=== PATIENT | male | born 1955 | race American Indian/Alaskan Native ===

== ENCOUNTER 2022-03-09 00:52 | Inpatient (IN) ==
[2022-03-09] MEDS ORDERED: IOPAMIDOL 100 ML BOTTLE IV ONE (00:53)
[2022-03-09] MEDS ORDERED: ONDANSETRON 4 MG/2 ML VIAL IV ONE (00:56)
[2022-03-09] MEDS ORDERED: morphine 4 MG/ML VIAL IV ONE ×2 (01:04→02:13)
[2022-03-09] MEDS ORDERED: FAMOTIDINE/PF 20 MG/2 ML VIAL IV ONE (01:04)
[2022-03-09] MEDS ORDERED: ACETAMINOPHEN 1,000 MG/100 ML BAG IV ONE (01:09)
--- NOTE | 2022-03-09 01:14 | Emergency Department Note ---
HPI General Chief complaint: Nausea/Vomiting/Diarrhea Stated complaint: n/v abd pain Time Seen by Provider: 03/09/22 00:55 Source: patient Mode of arrival: ambulatory Limitations: no limitations History of Present Illness HPI Narrative: Narrative: 66-year-old male with a history of BPH/prostate mass presented to the ED with acute mid abdominal pain bloating and nonbloody nonbilious nausea vomiting this evening. Says it started after "I ate a bad sandwich" thinks he may have food poisoning. No diarrhea. No fever no chills. No chest pain or shortness of breath. No symptoms. No history of hepatobiliary pancreatic disease. No other complaints. Related Data Home Medications Medication Instructions Recorded Confirmed ibuprofen 03/09/22 Previous Rx's Medication Instructions Recorded finasteride 5 mg tablet (Proscar) 5 mg PO QDAY #60 tab 09/28/16 tamsulosin 0.4 mg capsule 0.4 mg PO .Twice a day #120 cap 09/28/16 Allergies Allergy/AdvReac Type Severity Reaction Status Date / Time No Known Drug Allergies Allergy Verified 03/09/22 00:56 Review of Systems ROS ROS Narrative: Narrative: All systems ED: reviewed and negative except as stated. PFSH Narrative Patient History Narrative: Narrative: Medical/Surgical/Family History All Active Problems (Updated 03/09/22 @ 05:21 by Chris Ponce DO) Acute pancreatitis (Acute) Acute urinary retention (Acute) History of BPH (Acute) Acute duodenitis (Acute) Change in bowel movement (Acute) Prostate mass (Chronic) Left lower quadrant pain (Chronic) Medical History Left lower quadrant pain Prostate mass Surgical History History of elbow surgery 1988 No pertinent past surgical history Status post wrist surgery Bilateral Family History Sister Diabetes Daughter Diabetes Brother Hypertension Social History Smoking Status: Current some day smoker Alcohol Intake Frequency: a few times a month Exam Narrative Narrative: Narrative: Constitutional: normally developed, appears a bit uncomfortable heaving. Head: Normocephalic, atraumatic, Eyes: No Icterus, ENT: Moist mucus membranes, Neck: Supple, Cardiac: Normal heart sounds, palpable radial pulses, no peripheral edema Pulmonary: Normal respiratory effort. Breath sounds clear, no wheeze, rhonchi, rales, Gastrointestinal: Abdomen appears a bit distended but soft, has generalized tenderness throughout his upper abdomen with some voluntary guarding. Pain appears most focal in the epigastrium and less so in the right upper quadrant Musculoskeletal: No gross deformities, well perfused Skin: warm, dry Neuro: Alert and oriented. General Limitations: no limitations Course Vital Signs Vital signs: Vital Signs Temperature 36.6 C 03/09/22 00:53 Pulse Rate 81 03/09/22 00:53 Respiratory Rate 16 03/09/22 00:53 Blood Pressure 149/90 03/09/22 00:53 Pulse Oximetry (%) 95 03/09/22 00:53 Temperature 36.6 C 03/09/22 00:53 Pulse Rate 72 03/09/22 04:46 Respiratory Rate 16 03/09/22 00:53 Blood Pressure 131/82 03/09/22 04:46 Pulse Oximetry (%) 93 03/09/22 04:46 [facility] MDM Narrative Medical decision making narrative: Narrative:Generalized abdominal pain distention watery nausea vomiting which patient attributes to eating "a bad sandwich". Twelve-lead EKG normal sinus rhythm heart rate 75 SC, QRS, QTc within normal, no evidence of acute ischemia or STEMI Bladder scan >600cc, will mariano. Mariano catheter with approximately 2 L output of katlyn-colored urine. Has h/o BPH Labs resulting: CBC leukocytosis of 19, no anemia, electrolytes show a creatinine 1.3 GFR 56, patient has an elevated bilirubin and transaminases. Bili 1.6, AST 113, ALT 66 Considering the significant leukocytosis with elevated bili and LFTs, given a dose of Zosyn pending CT result out of concern for intra-abdominal infection Given 40mg protonix Lipase quite elevated [address] per direct radiology marked renal collection distention urinary retention. Also likely duodenitis without perforation, indeterminant gallbladder finding recommend ultrasound. We do not have ultrasound available at this time. Reevaluation patient beginning to feel much better with both analgesia as well as Mariano Discussed with Dr. French: recommends medical admission for pancreatitis and obtaining ultrasound vs MRCP Spoke with Dr Lion: Accepts admission. also RUQ US ordered for am Updated pt; feeling much better, agreeable to plan. Lab Data Result diagrams: 03/09/22 01:05 03/09/22 01:05 Labs: Lab Results 03/09/22 03/09/22 03/09/22 Range/Units 01:05 01:05 02:38 WBC 19.1 H (4.5-11.0) K/mcL RBC 4.91 (4.63-6.08) M/mcL Hgb 14.7 (13.7-17.5) g/dL Hct 43.3 (40.1-51.0) % MCV 88.2 (80.0-100.0) fL MCH 29.9 (26.0-34.0) pg MCHC 33.9 (31.0-36.0) g/dL RDW 13.3 (11.5-14.5) % Plt Count 282 (140-440) K/mcL MPV 9.6 (7.4-10.4) fL Neut % (Auto) 80.6 H (38.0-78.0) % Lymph % (Auto) 12.8 L (15.5-49.0) % [place] % (Auto) 5.7 (1.0-12.0) % Eos % (Auto) 0.7 (0.0-7.0) % Baso % (Auto) 0.2 (0.0-2.0) % Lymph # (Auto) 2.45 (1.50-4.80) K/mcL [place] # (Auto) 1.08 H (0.10-0.90) K/mcL Eos # (Auto) 0.14 (0.00-0.70) K/mcL Baso # (Auto) 0.04 (0.00-0.30) K/mcL Absolute Neutrophils 15.36 H (1.80-8.00) K/mcL Sodium 138 (133-145) mmol/L Potassium 3.5 (3.3-5.1) mmol/L Chloride 102 (96-108) mmol/L Carbon Dioxide 23 (22-30) mmol/L Anion Gap 13.0 (8.0-16.0) BUN 11 (8-23) mg/dL Creatinine 1.3 H (0.7-1.2) mg/dL GFR Calculation 56 Glucose 151 H (70-105) mg/dL Calcium 8.9 (8.6-10.4) mg/dL Total Bilirubin 1.6 H (0.1-1.0) mg/dL AST 113 H (<40) U/L ALT 66 H (<40) U/L Alkaline Phosphatase 103 (39-117) U/L Total Protein 7.7 (5.9-8.4) gm/dL Albumin 4.3 (3.2-5.2) gm/dL Globulin 3.4 (2.2-3.7) gm/dL Albumin/Globulin Ratio 1.3 (1.0-2.3) Lipase 6045 (7-60) U/L Urine Color Yellow Urine Appearance Clear (Clear) Urine pH 6.0 (5.0-9.0) Ur Specific [place] 1.010 (1.000-1.035) Urine Protein Negative (Negative) mg/dL Urine Glucose (UA) Negative (Negative) mg/dL Urine Ketones Negative (Negative) mg/dL Urine Occult Blood Negative (Negative) mg/dL Urine Nitrate Negative (Negative) Urine Bilirubin Negative (Negative) mg/dL Urine Urobilinogen Negative mg/dL Ur Leukocyte Esterase Negative (Negative) /uL Urine RBC 0 (0-3) /hpf Urine WBC 1 (0-4) /hpf Ur Squamous Epith Cells < 1 (0-4) /hpf Ur Transition Epith Cell < 1 (0-2) /hpf Urine Bacteria None (0) /hpf Ur Culture Indicated? No Discharge Plan Patient/Caregiver Discharge Instructions Pt seen by CHANNEL INSTALLER/PA only: No Clinical Impression: Acute pancreatitis, Acute urinary retention, History of BPH, Acute duodenitis Patient Disposition: Xfer As Inpt ([facility]) Condition: Serious Follow up with: Joel Medina MD [Primary Care Provider] - Prescriptions: No Action ibuprofen 0RF tamsulosin 0.4 mg capsule,extended release 24hr 0.4 mg PO .Twice a day Qty: 120 5RF finasteride [Proscar] 5 mg tablet 5 mg PO QDAY Qty: 60 8RF
[2022-03-09 01:52] LABS: Basophils # (Auto) 0.04 K/mcL (0.00-0.30); Basophils % (Auto) 0.2 % (0.0-2.0); Eosinophils # (Auto) 0.14 K/mcL (0.00-0.70); Eosinophils % (Auto) 0.7 % (0.0-7.0); Hematocrit 43.3 % (40.1-51.0); Hemoglobin 14.7 g/dL (13.7-17.5); Lymphocytes # (Auto) 2.45 K/mcL (1.50-4.80); Lymphocytes % (Auto) 12.8 % (15.5-49.0); Mean Cell Volume 88.2 fL (80.0-100.0); Mean Corpuscular HGB Conc 33.9 g/dL (31.0-36.0); Mean Platelet Volume 9.6 fL (7.4-10.4); Monocytes # (Auto) 1.08 K/mcL (0.10-0.90); Monocytes % (Auto) 5.7 % (1.0-12.0); Neutrophils % (Auto) 80.6 % (38.0-78.0); Platelet Count 282 K/mcL (140-440); RBC 4.91 M/mcL (4.63-6.08); Red Cell Distribution Width 13.3 % (11.5-14.5); WBC 19.1 K/mcL (4.5-11.0)
[2022-03-09] MEDS: LACTATED RINGERS 1,000 ML IV SCH ×2 (02:00→07:26)
[2022-03-09 02:02] LABS: ALT/SGPT 66 U/L (<40); AST/SGOT 113 U/L (<40); Albumin 4.3 gm/dL (3.2-5.2); Albumin/Globulin Ratio 1.3 (1.0-2.3); Alkaline Phosphatase 103 U/L (39-117); Bilirubin,Total 1.6 mg/dL (0.1-1.0); Blood Urea Nitrogen 11 mg/dL (8-23); Calcium 8.9 mg/dL (8.6-10.4); Carbon Dioxide 23 mmol/L (22-30); Chloride 102 mmol/L (96-108); Globulin 3.4 gm/dL (2.2-3.7); Glomerular Filtration Rate 56; Glucose 151 mg/dL (70-105)
[2022-03-09] MEDS ORDERED: PIPERACILLIN SODIUM/TAZOBACTAM 4.5 GM in DEXTROSE 5% IN WATER 50 ML IV ONE (02:42)
[2022-03-09 04:07] LABS: Appearance,Urine CLEAR (Clear); Bilirubin,Urine Negative (Negative); Color,Urine YELLOW; Culture Indicated,Urine No; Glucose,Urine (UA) Negative (Negative); Ketones,Urine Negative (Negative); Leukocyte Esterase,Urine Negative /uL (Negative); Nitrate,Urine Negative (Negative); Protein,Urine Negative (Negative); Urine Blood Negative (Negative); Urine RBC 0 /hpf (0-3); Urine Squamous Epithelial Cell < 1 /hpf (0-4); Urine Transitional Epi Cells < 1 /hpf (0-2); Urine WBC 1 /hpf (0-4); Urobilinogen,Urine Negative
[2022-03-09] MEDS ORDERED: PANTOPRAZOLE 40 MG VIAL IV ONE (04:49)
[2022-03-09] MEDS ORDERED: ONDANSETRON 4 MG/2 ML VIAL IV PRN ×2 (05:17→11:42)
[2022-03-09] MEDS ORDERED: morphine 2 MG/ML VIAL IV PRN (05:17)
[2022-03-09] MEDS ORDERED: NALOXONE HCL 0.4 MG/ML VIAL IV PRN (05:17)
--- NOTE | 2022-03-09 08:49 | Internal Med History&Physical ---
HPI History of Present Illness Patient information: Note initiated : 03/09/22 at 8:34 am Service Date, if different from initiated Date: [] Patient: Clay Villagran a 66 y/o M admitted on 03/09/22 for n/v abd pain. Chief Complaint: [] History of present illness: Mr. Villagran is a 66 year old M Presents to the ED nausea vomiting and abdominal pain mid abdomen. Patient is a couple days ago at the [facility] in [place] with a tree exam shows were brought in for them. He took at home and started eating in the next day which was yesterday. He noted that the sandwich tasted bad stopped eating it. Started having a little bit of upset stomach and [place] the [place] and then started feeling really crummy developed some nausea and vomiting. Went home and continued to have nausea vomiting and developed significant abdominal pain which is initially generalized and then focused in the mid abdomen. No headaches fevers. In the ED he was worked up and found to have pancreatitis as well as urinary retention. CT abdomen also showed duodenitis without perforation and indeterminate gallbladder finding and gallbladder ultrasound pending. Patient bladder scanned for greater than 600 cc and Mariano was placed. Had a leukocytosis elevated creatinine elevated bili and mild transaminitis. Lipase found to be 6000 Patient said he has had to have a Mariano catheter in the past temporarily. Case was discussed with Dr. French who stated to get a gallbladder ultrasound. Review of Systems: Pertinent positives as above. Denies headache/fever/chills/chest pain/cough/dyspnea. Remaining 10 point review of system reviewed negative PFSH PFSH All Active Problems (Updated 03/09/22 @ 05:21 by Chris Ponce DO) Acute pancreatitis (Acute) Acute urinary retention (Acute) History of BPH (Acute) Acute duodenitis (Acute) Change in bowel movement (Acute) Prostate mass (Chronic) Left lower quadrant pain (Chronic) Medical History Left lower quadrant pain Prostate mass Surgical History History of elbow surgery 1987 No pertinent past surgical history Status post wrist surgery Bilateral Family History Sister Diabetes Daughter Diabetes Brother Hypertension Social History alcohol intake frequency: a few times a month MEDS/ALLERGIES Home Medications and Allergies Home Medications Medication Instructions Recorded Confirmed Type finasteride 5 mg tablet (Proscar) 5 mg PO QDAY #60 tab 09/28/16 03/09/22 Rx tamsulosin 0.4 mg capsule 0.4 mg PO .Twice a day #120 cap 09/28/16 03/09/22 Rx Allergies Allergy/AdvReac Type Severity Reaction Status Date / Time No Known Drug Allergies Allergy Verified 03/09/22 00:56 EXAM Constitutional Vitals: Temp Pulse Resp BP Pulse Ox 98.0 F 75 18 145/87 94 03/09/22 07:47 03/09/22 07:47 03/09/22 07:47 03/09/22 07:47 03/09/22 07:47 Exam: General: Alert, Awake, No acute Distress, obese Eyes/N/T: EOMI, PERRL, dMM Head/Neck: neck supple, normocephalic atraumatic CV: RRR, No murmurs, normal s1/s2 Pulm: Clear b/l, no wheezing/rhonchi/rales Abd: soft, tender to palp especially epigastrium, +BS x4 Ext: no clubbing/cyanosis/edema Neuro: Alert, no focal deficits, moves all extremities, CN 2-12 grossly intact, symmetrical strength b/l upper/lower, sensations intact b/l upper/lower Skin: warm/dry DATA Data Completed and Pending Labs: Labs from last 24 hours 03/09/22 03/09/22 03/09/22 02:38 01:05 01:05 WBC 19.1 H RBC 4.91 Hgb 14.7 Hct 43.3 MCV 88.2 MCH 29.9 MCHC 33.9 RDW 13.3 Plt Count 282 MPV 9.6 Neut % (Auto) 80.6 H Lymph % (Auto) 12.8 L Andrew % (Auto) 5.7 Eos % (Auto) 0.7 Baso % (Auto) 0.2 Lymph # (Auto) 2.45 Andrew # (Auto) 1.08 H Eos # (Auto) 0.14 Baso # (Auto) 0.04 Absolute Neutrophils 15.36 H Sodium 138 Potassium 3.5 Chloride 102 Carbon Dioxide 23 Anion Gap 13.0 BUN 11 Creatinine 1.3 H GFR Calculation 56 Glucose 151 H Calcium 8.9 Total Bilirubin 1.6 H AST 113 H ALT 66 H Alkaline Phosphatase 103 Total Protein 7.7 Albumin 4.3 Globulin 3.4 Albumin/Globulin Ratio 1.3 Lipase 6045 Urine Color Yellow Urine Appearance Clear Urine pH 6.0 Ur Specific [place] 1.010 Urine Protein Negative Urine Glucose (UA) Negative Urine Ketones Negative Urine Occult Blood Negative Urine Nitrate Negative Urine Bilirubin Negative Urine Urobilinogen Negative Ur Leukocyte Esterase Negative Urine RBC 0 Urine WBC 1 Ur Squamous Epith Cells < 1 Ur Transition Epith Cell < 1 Urine Bacteria None Ur Culture Indicated? No A/P Narrative A/P Narrative: A: *Acute pancreatitis: 2/2 choledocholithiasis -Rainier's =2 -Leukocytosis/Transaminitis/Llipase 6000 -pending GB u/s *Acute cholecystitis: *Transaminitis: 2/2 above *SIRISHA: *Urinary retention: h/o BPH and has seen Urology for UR *Duodenitis: *prediabetes: check a1c *Obesity: BMI 32 P: -IVF -pain control -clear liquids -IV Zosyn -d/w Dr. French -monitor uop/electrolytes/glucose -carafate/ppi -mariano placement, cont home flomax/finasteride, f/u with urology, attempt to d/c mariano when able -SSI if needed -ppx: heparin Time Spent With Patient Time: Total time spent is greater than 50% in coordination of care (as documented) at patient's floor/unit and/or counseling patient: Total time spent with greater than 50% in coordination of care (as documented) at patient's floor/unit and/or counseling patient:: 50 - 70 minutes
--- NOTE | 2022-03-09 09:24 | EKG ---
[facility] Minor Care Test Date: 2022-03-09 Pat Name: Clay Villagran Department: ED Room: Gender: Male Night Stocker: levon : 1955 Requested By: Chris Ponce Order Number: [id number] Reading MD: Camilo Corbett M.D. Measurements Intervals [place] Rate: 75 P: 28 NM: 189 QRS: 55 QRSD: 102 T: 48 QT: 420 QTc: 470 Interpretive Statements Sinus rhythm Electronically Signed On 03-09-2022 9:24:31 PDT by Camilo Corbett M.D. /store/[email or web address]/[id number]
--- NOTE | 2022-03-09 09:59 | Cat Scan Report ---
CLINICAL INFORMATION: Bowel pain distention nausea vomiting diarrhea COMPARISON: 08/19/[address] TECHNIQUE: Following enteric contrast, 80 cc of Isovue-370 were injected intravenously, and 60 seconds later, 0.625 mm helical slices were obtained from the mid heart through the subtrochanteric regions. Following reconstruction, 2.5 mm sagittal, coronal and axial reformatted images were processed and reviewed at bone, lung and soft tissue windows. Five minutes later, 0.625 mm helical slices were obtained from the mid heart through the kidneys and viewed at soft tissue windows.The exam was performed using radiation dose optimization techniques including, but not limited to, automated exposure control, adjustment of the mA and/or kV according to patient size and use of iterative reconstruction technique. FINDINGS: The lung bases chronic bronchitis. There is mild patchy airspace disease in both posterior inferior lower lobes likely representing atelectasis. Tubular bronchiectasis in the segmental and subsegmental medial and posterior basilar lower lobe bronchi have developed. A 6 mm pleural-based nodule in the lingula is new and likely represents a benign subpulmonic lymph node. No effusions. The visualized heart is normal. Abdominal images show the the gallbladder is slightly enlarged with mild wall thickening and pericholecystic fluid suggesting early cystitis. No radiopaque stones identified. Liver shows diffuse fatty change with a few small yet stable simple cysts. The pancreatic head and neck are mildly enlarged with moderate fluid in the peripancreatic and periduodenal fat planes. Both adrenal glands and spleen are normal. Fusiform infrarenal abdominal aortic aneurysm has developed diameter: 3.1 cm. Other aortic branches contain atherosclerotic plaque, but no stenoses. Prostate is mildly enlarged: 4.2 x 3.2 cm. Marked distention of urinary bladder and marked bilateral hydroureter/hydronephrosis has progressed from 2016 CT. Findings most compatible with chronic bladder outlet obstruction. Both kidneys are otherwise normal. There is no free air, free fluid no adenopathy. The stomach, small bowel, appendix and large bowel are grossly normal. Bone windows show no focal osseous abnormality. At L4-5, there is severe central canal, bilateral lateral recess and bilateral IV foraminal stenosis due to degenerative disc disease and facet hypertrophy. There is dilatation of the exiting L4 and descending L5 nerve roots. Similar, yet only moderate changes, are present L2-3 and L3-4. Slight progression from previous exam. IMPRESSION: 1. Moderate fluid in the paraduodenal/peripancreatic planes. This likely represents pancreatitis however primary duodenitis is also a possibility. Please correlate with amylase and lipase. 2. Mild enlargement of the gallbladder with diffuse wall thickening compatible with cholecystitis. (Multiple stones in the gallbladder as seen on the accompanying ultrasound) 3. Mild prostate enlargement. Massive dilatation of the urinary bladder, both ureters and upper collecting systems is compatible chronic bladder outlet obstruction likely related to prostate enlargement or prostate mass. This shows modest progression. Patient may benefit from Rodrigues catheter placement 4. Subsegmental atelectasis both lower lobes with bronchiectasis in the segmental and subsegmental bronchi of the medial and posterior basilar segments bilaterally. 9 mm nodule in the lingular region is likely benign subpulmonic lymph node 5. 3.1 cm fusiform infrarenal abdominal aortic aneurysm-new from prior exam. Suggest follow-up abdominal aortic ultrasound in one to two years for reevaluation. 6. 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 There is impingement of the exiting L4 and descending L5 nerve roots. Moderate, yet similar, degenerative change is present at L2-3 and L3-4. Please correlate with chronic or intermittent bilateral lower extremity radiculopathy and back pain Interpreted and Authenticated by: Camilo Sánchez 03/09/22
--- NOTE | 2022-03-09 10:09 | Ultrasound Report ---
CLINICAL INFORMATION: Abdominal pain and distention and vomiting COMPARISON: None. FINDINGS: The gallbladder is mildly enlarged with slight wall thickening and multiple stones. There is a small amount of pericholecystic fluid and a sonographic Beard's sign patible with cholecystitis. Common bile duct is normal-6 mm Liver normal in size with hyperechogenicity compatible fatty change. No focal hepatic lesion. Pancreas is not well visualized. IMPRESSION: Cholecystitis. Pancreas not visualized. Interpreted and Authenticated by: Camilo Sánchez 03/09/22
[2022-03-09] MEDS: TAMSULOSIN 0.4 MG CAPSULE PO SCH ×2 (10:12→20:19)
[2022-03-09] MEDS: FINASTERIDE 5 MG TABLET PO SCH (10:12)
[2022-03-09] MEDS ORDERED: METOCLOPRAMIDE 10 MG/2 ML VIAL IV PRN (11:42)
[2022-03-09] MEDS ORDERED: MAGNESIUM SULFATE 2 GM/50 ML BAG IV PRN (11:42)
[2022-03-09] MEDS ORDERED: SENNOSIDES 1 TABLET PO PRN (11:42)
[2022-03-09] MEDS ORDERED: IPRATROPIUM/ALBUTEROL 3 ML AMPUL.NEB NEB PRN (11:42)
[2022-03-09] MEDS ORDERED: HYDROmorphone 0.5 MG/0.5 ML SYRINGE IV PRN (11:42)
[2022-03-09] MEDS ORDERED: POLYETHYLENE GLYCOL 3350 17 GM PACKET PO PRN (11:42)
[2022-03-09] MEDS ORDERED: POTASSIUM CHLORIDE 40 MEQ in DEXTROSE 5% IN WATER 500 ML IV PRN (11:42)
[2022-03-09] MEDS ORDERED: POTASSIUM CHLORIDE 20 MEQ TABLET PO PRN ×2 (11:42)
[2022-03-09] MEDS: PIPERACILLIN SODIUM/TAZOBACTAM 3.375 GM in DEXTROSE 5% IN WATER 50 ML IV SCH ×2 (12:41→17:15)
[2022-03-09 12:48] LABS: Hemoglobin A1C 5.6 % Hgb (4.0-6.0)
[2022-03-09] MEDS: 0.9 % SODIUM CHLORIDE 10 ML SYRINGE IV SCH ×2 (17:01→20:20)
[2022-03-09] MEDS: SUCRALFATE 1 GM/10 ML ORAL.SUSP PO SCH ×2 (17:15→20:19)
[2022-03-09] MEDS: 0.9 % SODIUM CHLORIDE 1,000 ML IV SCH ×2 (17:16→21:42)
[2022-03-09] MEDS: DOCUSATE SODIUM 100 MG CAPSULE PO SCH (20:19)
[2022-03-09] MEDS: HEPARIN 5,000 UNIT/ML VIAL SQ SCH (20:19)
[2022-03-10] MEDS: PIPERACILLIN SODIUM/TAZOBACTAM 3.375 GM in DEXTROSE 5% IN WATER 50 ML IV SCH ×5 (00:02→23:55)
[2022-03-10] MEDS: 0.9 % SODIUM CHLORIDE 1,000 ML IV SCH ×2 (04:58→15:06)
[2022-03-10] MEDS: 0.9 % SODIUM CHLORIDE 10 ML SYRINGE IV SCH ×3 (05:52→21:33)
[2022-03-10 07:18] LABS: Basophils # (Auto) 0.03 K/mcL (0.00-0.30); Basophils % (Auto) 0.3 % (0.0-2.0); Eosinophils # (Auto) 0.06 K/mcL (0.00-0.70); Eosinophils % (Auto) 0.5 % (0.0-7.0); Hematocrit 41.4 % (40.1-51.0); Lymphocytes # (Auto) 1.52 K/mcL (1.50-4.80); Lymphocytes % (Auto) 13.5 % (15.5-49.0); Mean Cell Volume 87.9 fL (80.0-100.0); Mean Corpuscular HGB Conc 33.8 g/dL (31.0-36.0); Monocytes # (Auto) 0.85 K/mcL (0.10-0.90); Monocytes % (Auto) 7.6 % (1.0-12.0); Neutrophils % (Auto) 78.1 % (38.0-78.0); Platelet Count 258 K/mcL (140-440); RBC 4.71 M/mcL (4.63-6.08); Red Cell Distribution Width 13.3 % (11.5-14.5); WBC 11.3 K/mcL (4.5-11.0)
[2022-03-10 07:33] LABS: INR 1.1 (0.9-1.1); Prothrombin Time 14.3 sec (11.9-14.5)
[2022-03-10 07:45] LABS: ALT/SGPT 88 U/L (<40); AST/SGOT 54 U/L (<40); Albumin 3.3 gm/dL (3.2-5.2); Alkaline Phosphatase 108 U/L (39-117); Bilirubin,Direct 0.3 mg/dL (<0.3); Bilirubin,Total 1.2 mg/dL (0.1-1.0); Blood Urea Nitrogen 7 mg/dL (8-23); Calcium 8.1 mg/dL (8.6-10.4); Carbon Dioxide 20 mmol/L (22-30); Chloride 104 mmol/L (96-108); Globulin 3.3 gm/dL (2.2-3.7); Glomerular Filtration Rate 61; Glucose 115 mg/dL (70-105); Lactate Dehydrogenase 187 U/L (135-225); Phosphorous 2.2 mg/dL (2.5-4.5); Triglycerides 168 mg/dL (<150); Uric Acid 3.6 mg/dL (2.5-8.0)
[2022-03-10] MEDS: FINASTERIDE 5 MG TABLET PO SCH (07:59)
[2022-03-10] MEDS: DOCUSATE SODIUM 100 MG CAPSULE PO SCH ×2 (07:59→21:32)
[2022-03-10] MEDS: TAMSULOSIN 0.4 MG CAPSULE PO SCH ×2 (07:59→21:32)
[2022-03-10] MEDS: SUCRALFATE 1 GM/10 ML ORAL.SUSP PO SCH ×2 (08:00→12:30)
[2022-03-10] MEDS: PANTOPRAZOLE 40 MG VIAL IV SCH (08:00)
[2022-03-10] MEDS: HEPARIN 5,000 UNIT/ML VIAL SQ SCH ×2 (08:14→21:33)
--- NOTE | 2022-03-10 08:33 | Internal Med Progress Note ---
SUBJECTIVE Subjective Patient information: Note initiated : 03/10/22 at 8:27 am Service Date, if different from initiated Date: [] Patient: Clay Villagran a 66 y/o M admitted on 03/09/22 for n/v abd pain. Chief Complaint: [] Interval history: History of present illness: Mr. Villagran is a 66 year old M Presents to the ED nausea vomiting and abdominal pain mid abdomen. Patient is a couple days ago at the [facility] in [place] with a tree exam shows were brought in for them. He took at home and started eating in the next day which was yest erday. He noted that the sandwich tasted bad stopped eating it. Started having a little bit of upset stomach and went to the casino and then started feeling really crummy developed some nausea and vomiting. Went home and continued to have nausea vomiting and developed significant abdominal pain which is initially generalized and then focused in the mid abdomen. No headaches fevers. In the ED he was worked up and found to have pancreatitis as well as urinary retention. CT abdomen also showed duodenitis without perforation and indeterminate gallbladder finding and gallbladder ultrasound pending. Patient bladder scanned for greater than 600 cc and Mariano was placed. Had a leukocytosis elevated creatinine elevated bili and mild transaminitis. Lipase found to be 6000 Patient said he has had to have a Mariano catheter in the past temporarily. Case was discussed with Dr. French who stated to get a gallbladder ultrasound. 5/3 Abdominal pain present but gradually improving. Patient tolerating clear liquids. MRCP pending. Gross hematuria resolved. Just diet and IV fluids. Monitor replace electrolytes Review of Systems: denies headache/fever/chills/nausea/vomiting/chest pain/cough/dyspnea/diarrhea. Otherwise see above. Constitutional Vitals: Vital Signs Temp Pulse Resp BP Pulse Ox 99.3 F H 88 20 138/92 94 03/10/22 08:00 03/10/22 08:00 03/10/22 08:00 03/10/22 08:00 03/10/22 08:00 Period Temp Pulse Resp BP Sys/Mohan Pulse Ox Last 24 Hr 97.5 F-100 F 74-88 16-20 127-153/81-92 91-97 Intake and Output 03/09/22 03/10/22 03/10/22 21:59 05:59 13:59 Intake Total 1315 1250 Output Total 900 2700 Balance 415 -1450 Weight 59.058 kg Intake & Output: Intake & Output 03/09/22 03/10/22 03/10/22 21:59 05:59 13:59 Intake Total 1315 1250 Output Total 900 2700 Balance 415 -1450 Weight 59.058 kg Intake: IV 715 1050 Sodium Chloride 0.9% 1,000 ml @ 665 1000 150 mls/hr IV .Q6H40M [facility] Rx#: [id number] Zosyn 3.375 gm In Dextrose 5% 50 50 in Water 50 ml @ 100 mls/hr IV Q6H [facility] Rx#:[id number] Oral 600 200 Output: Urine Catheter Amount 900 2700 Other: Urine Appearance Hematuria Clear Urine Color Blood Tinged Blood Tinged Bright Yellow Urine Odor Normal Exam: General: Alert, Awake, No acute Distress, obese Eyes/N/T: EOMI, Head/Neck: neck supple, CV: RRR, No murmurs, normal s1/s2 Pulm: Clear b/l, no wheezing/rhonchi/rales Abd: soft, tender epigastrium, +BS x4 Ext: no clubbing/cyanosis/edema Neuro: Alert, no focal deficits, moves all extremities, Skin: warm/dry OBJ DATA Labs CBC & Chem 7: 03/10/22 06:08 03/10/22 06:08 Labs: Abnormal Lab Results 03/10/22 03/10/22 03/10/22 06:08 06:08 06:08 WBC 11.3 H Neut % (Auto) 78.1 H Lymph % (Auto) 13.5 L [place] # (Auto) Absolute Neutrophils 8.79 H Carbon Dioxide 20 L BUN 7 L Creatinine Glucose 115 H Calcium 8.1 L Phosphorus 2.2 L Total Bilirubin 1.2 H Direct Bilirubin 0.3 H GGT 160 H AST 54 H ALT 88 H Lactate Dehydrogenase Triglycerides 168 H Lipase 162 H 03/09/22 03/09/22 03/09/22 01:05 01:05 01:05 WBC 19.1 H Neut % (Auto) 80.6 H Lymph % (Auto) 12.8 L [place] # (Auto) 1.08 H Absolute Neutrophils 15.36 H Carbon Dioxide BUN Creatinine 1.3 H Glucose 151 H Calcium Phosphorus Total Bilirubin 1.6 H Direct Bilirubin GGT AST 113 H ALT 66 H Lactate Dehydrogenase 272 H Triglycerides Lipase Meds: Medications Albuterol/Ipratropium (Ipratropium/Albuterol 3 Ml Ampul.Neb) 3 ml NEB Q4HP PRN PRN Reason: Shortness Of Breath Docusate Sodium (Docusate Sodium 100 Mg Capsule) 100 mg PO BID [facility] Last Admin: 03/10/22 07:59 Dose: 100 mg Documented by: Finasteride (Finasteride 5 Mg Tablet) 5 mg PO QDAY [facility] Last Admin: 03/10/22 07:59 Dose: 5 mg Documented by: Heparin Sodium (Porcine) (Heparin 5,000 Unit/Ml Vial) 5,000 unit SQ Q12 [facility] Last Admin: 03/10/22 08:14 Dose: 5,000 unit Documented by: Hydromorphone HCl (Hydromorphone 0.5 Mg/0.5 Ml Syringe) 0 mg IV Q2HP PRN PRN Reason: Pain Potassium Chloride 40 meq/ (Dextrose) 520 mls @ 130 mls/hr IV UD PRN PRN Reason: Potassium < 3 Magnesium Sulfate (Magnesium Sulfate) 2 gm in 50 mls @ 50 mls/hr IV UD PRN PRN Reason: Magnesium </= 1.6 Piperacillin Sod/Tazobactam (Sod 3.375 gm/ Dextrose) 50 mls @ 100 mls/hr IV Q6H [facility]; Protocol Last Admin: 03/10/22 04:53 Dose: 100 mls/hr Documented by: Sodium Chloride (Sodium Chloride 0.9%) 1,000 mls @ 150 mls/hr IV .Q6H40M [facility] Last Admin: 03/10/22 04:58 Dose: 150 mls/hr Documented by: Metoclopramide HCl (Metoclopramide 10 Mg/2 Ml Vial) 10 mg IV Q6HP PRN PRN Reason: Nausea And Vomiting Naloxone HCl (Naloxone Hcl 0.4 Mg/Ml Vial) 0.1 mg IV Q2MIN PRN PRN Reason: Opiate Reversal Ondansetron HCl (Ondansetron 4 Mg/2 Ml Vial) 4 mg IV Q4HP PRN; Protocol PRN Reason: Nausea And Vomiting Pantoprazole Sodium (Pantoprazole 40 Mg Vial) 40 mg IV QAMAC [facility] Last Admin: 03/10/22 08:00 Dose: 40 mg Documented by: Polyethylene Glycol (Polyethylene Glycol 3350 17 Gm Packet) 17 gm PO DAILYP PRN PRN Reason: Constipation Last Admin: 03/10/22 08:14 Dose: 17 gm Documented by: Potassium Chloride (Potassium Chloride 20 Meq Tablet) 40 meq PO UD PRN PRN Reason: Potssium is 3-3.5 Last Admin: 03/09/22 12:41 Dose: 40 meq Documented by: Potassium Chloride (Potassium Chloride 20 Meq Tablet) 40 meq PO UD PRN PRN Reason: Potassium < 3 Senna (Sennosides 1 Tablet) 2 tab PO DAILYP PRN PRN Reason: Constipation Sodium Chloride (0.9 % Sodium Chloride 10 Ml Syringe) 10 ml IV Q8 [facility] Last Admin: 03/10/22 05:52 Dose: Not Given Documented by: Sucralfate (Sucralfate 1 Gm/10 Ml Oral.Susp) 1 gm PO ACHS [facility] Stop: 03/10/22 11:31 Last Admin: 03/10/22 08:00 Dose: 1 gm Documented by: Tamsulosin HCl (Tamsulosin 0.4 Mg Capsule) 0.4 mg PO BID [facility] Last Admin: 03/10/22 07:59 Dose: 0.4 mg Documented by: A/P Narrative A/P Narrative: A: *Acute pancreatitis: 2/2 choledocholithiasis -Herald's =2 -Leukocytosis(improving)/Transaminitis/Llipase 6000 *Choledocholithiasis, ?acute cholecystitis: -MRCP *Transaminitis: 2/2 above *SIRISHA: improved *Urinary retention: h/o BPH and has seen Urology for UR *Gross Hematuria: likely traumatic mariano with enlarged prostate vascularity -resolved *Duodenitis: *Obesity: BMI 32 P: -IVF -pain control -clear liquids, advance to low fat as tolerated -IV Zosyn -MRCP pending -d/w Dr. French -monitor uop/electrolytes/glucose -carafate/ppi -mariano placement, cont home flomax/finasteride, f/u with urology, attempt to d/c mariano when able -SSI if needed -ppx: heparin Time Spent With Patient Time: Total time spent is greater than 50% in coordination of care (as documented) at patient's floor/unit and/or counseling patient: Total time spent with greater than 50% in coordination of care (as documented) at patient's floor/unit and/or counseling patient:: 35 - 50 minutes QUALITY VTE Deep Vein Thrombosis/Pulmonary Embolism Present on Admission: No
--- NOTE | 2022-03-10 09:17 | General Surgery Consult Note ---
HPI Data of Consult Patient: new to practice Consult date: 03/10/22 Requesting physician: Eder Lion Primary Care Provider: Joel Medina Consult Narrative Patient Information: Note initiated : 03/10/22 at 9:12 am Service Date, if different from initiated Date: [] Patient: Clay Villagran 66 y/o M admitted on 03/09/22 for n/v abd pain. Chief Complaint: [Abdominal Pain] Mr Villagran was seen in the ER early Wednesday AM after developing severe abdominal pain across the upper abdomen. A CT scan at that time demonstrated findings consistent with significant peripancreatic edema and laboratory findings consistent with Acute Pancreatitis. He denies prior bouts of pancreatitis and has not been a heavy drinker per his history. An MRCP was done this morning with results pending. He continues to have non focal upper abdominal pain across the entire abdomen consistent with Pancreatitis. He states he has not had prior abdominal operations. He is not on any oral anticoagulants and he denies any major cardiopulmonary issues. Overall he feels much better than he did on admission. Reason for consult: Gallstone Pancreatitis cc:: CC: Eder Lion Review of Systems All systems: reviewed and no additional remarkable complaints except as stated Constitutional Additional comments: no recent weight loss or other issue EENT Additional comments: no changes Cardiovascular Additional comments: no known issues, no active chest pains Respiratory Respiratory: Absent dyspnea or wheezing Gastrointestinal Additional comments: see HPI Integumentary Additional comments: no skin changes PFSH PFSH All Active Problems (Updated 03/09/22 @ 05:21 by Chris Ponce DO) Acute pancreatitis (Acute) Acute urinary retention (Acute) History of BPH (Acute) Acute duodenitis (Acute) Change in bowel movement (Acute) Prostate mass (Chronic) Left lower quadrant pain (Chronic) Medical History Left lower quadrant pain Prostate mass Surgical History History of elbow surgery 1988 No pertinent past surgical history Status post wrist surgery Bilateral Family History Sister Diabetes Daughter Diabetes Brother Hypertension Social History alcohol intake frequency: a few times a month MEDS/ALLERGIES Home Medications and Allergies Home Medications Medication Instructions Recorded Confirmed Type finasteride 5 mg tablet (Proscar) 5 mg PO QDAY #60 tab 09/28/16 03/09/22 Rx tamsulosin 0.4 mg capsule 0.4 mg PO .Twice a day #120 cap 09/28/16 03/09/22 Rx Allergies Allergy/AdvReac Type Severity Reaction Status Date / Time No Known Drug Allergies Allergy Verified 03/09/22 00:56 Physical Examination Vital Signs Vital signs: Temp Pulse Resp BP Pulse Ox 99.3 F H 88 20 138/92 94 03/10/22 08:00 03/10/22 08:00 03/10/22 08:00 03/10/22 08:00 03/10/22 08:00 General physical appearance General physical exam: well developed, well nourished and no distress Eyes Eye exam: normal ocular movement; negative icteric ENT ENT exam: normal pinna and normal nares Head Head exam IM: Present atraumatic and normal inspection Neck Neck exam: no masses, trachea midline and no lymphadenopathy Cardiovascular Cardiovascular exam IM: Present RRR Respiratory Respiratory exam: normal respiratory effort Abdomen Abdomen: Present soft (hortencia is soft and non distended, there is mild diffuse tenderness in the Upper Abdomen. There is no substantial RUQ tenderness. ) Integumentary Integumentary: Present other (normal apearing intact skin ) Neurologic Neurologic: Present other (grossly intact ) Psychiatric Psychiatric: Present oriented to time, oriented to person and oriented to place Results Labs Result diagrams: 03/10/22 06:08 03/10/22 06:08 Labs: Abnormal lab results 03/10/22 03/10/22 03/10/22 Range/Units 06:08 06:08 06:08 WBC 11.3 H (4.5-11.0) K/mcL Neut % (Auto) 78.1 H (38.0-78.0) % Lymph % (Auto) 13.5 L (15.5-49.0) % Absolute Neutrophils 8.79 H (1.80-8.00) K/mcL Carbon Dioxide 20 L (22-30) mmol/L BUN 7 L (8-23) mg/dL Glucose 115 H (70-105) mg/dL Calcium 8.1 L (8.6-10.4) mg/dL Phosphorus 2.2 L (2.5-4.5) mg/dL Total Bilirubin 1.2 H (0.1-1.0) mg/dL Direct Bilirubin 0.3 H (<0.3) mg/dL GGT 160 H (8-61) U/L AST 54 H (<40) U/L ALT 88 H (<40) U/L Triglycerides 168 H (<150) mg/dL Lipase 162 H (7-60) U/L Diabetes panel 03/09/22 03/10/22 Range/Units 01:05 06:08 Sodium 136 (133-145) mmol/L Potassium 4.1 (3.3-5.1) mmol/L Chloride 104 (96-108) mmol/L Carbon Dioxide 20 L (22-30) mmol/L BUN 7 L (8-23) mg/dL Creatinine 1.2 (0.7-1.2) mg/dL Glucose 115 H (70-105) mg/dL Hemoglobin A1c 5.6 (4.0-6.0) % Hgb Calcium 8.1 L (8.6-10.4) mg/dL AST 54 H (<40) U/L ALT 88 H (<40) U/L Alkaline Phosphatase 108 (39-117) U/L Total Protein 6.6 (5.9-8.4) gm/dL Albumin 3.3 (3.2-5.2) gm/dL Triglycerides 168 H (<150) mg/dL Calcium panel 03/10/22 Range/Units 06:08 Calcium 8.1 L (8.6-10.4) mg/dL Phosphorus 2.2 L (2.5-4.5) mg/dL Albumin 3.3 (3.2-5.2) gm/dL Pituitary panel 03/10/22 Range/Units 06:08 Sodium 136 (133-145) mmol/L Potassium 4.1 (3.3-5.1) mmol/L Chloride 104 (96-108) mmol/L Carbon Dioxide 20 L (22-30) mmol/L BUN 7 L (8-23) mg/dL Creatinine 1.2 (0.7-1.2) mg/dL Glucose 115 H (70-105) mg/dL Calcium 8.1 L (8.6-10.4) mg/dL Adrenal panel 03/10/22 Range/Units 06:08 Sodium 136 (133-145) mmol/L Potassium 4.1 (3.3-5.1) mmol/L Chloride 104 (96-108) mmol/L Carbon Dioxide 20 L (22-30) mmol/L BUN 7 L (8-23) mg/dL Creatinine 1.2 (0.7-1.2) mg/dL Glucose 115 H (70-105) mg/dL Calcium 8.1 L (8.6-10.4) mg/dL Total Bilirubin 1.2 H (0.1-1.0) mg/dL AST 54 H (<40) U/L ALT 88 H (<40) U/L Alkaline Phosphatase 108 (39-117) U/L Total Protein 6.6 (5.9-8.4) gm/dL Albumin 3.3 (3.2-5.2) gm/dL All other labs normal. A/P Assessment and plan (1) Acute pancreatitis: Assessment and plan: Acute Biliary Pancreatitis Clinically seems to be resolving but still has active pain in the upper central abdomen Check MRCP results Recommendations for Cholecystectomy discussed at length as well including recommendations to typically have this done as an inpatient prior to discharge Continue clears only for now with surgery potentially this week if he continues to resolve this and wishes to proceed Status: Acute Time Spent With Patient Time: Total time spent is greater than 50% in coordination of care (as documented) at patient's floor/unit and/or counseling patient:
[2022-03-10] MEDS: LACTATED RINGERS 1,000 ML IV SCH (12:31)
--- NOTE | 2022-03-10 16:19 | Magnetic Resonance Report ---
INDICATION: gallstone pancreatitis, ?choleycystitis COMPARISON: CT and ultrasound dated 03/09/2022 FINDINGS: Noncontrast multiplanar multisequence MRCP. Innumerable gallstones are seen within the lumen of the gallbladder. Mild edema around the pancreas. There is no evidence of biliary ductal dilatation. Diameter is approximately 4 mm of the common bile duct. The distal aspect of the common bile duct is not well seen on this exam. However, the distal aspect appears to taper as one would expect it to bleeding into the sphincter of [place]. I do not see evidence of choledocholithiasis. Small hepatic cysts are noted. There is bilateral hydronephrosis IMPRESSION: Cholelithiasis CT evidence of cholecystitis and pancreatitis. No evidence of choledocholithiasis or abnormal biliary ductal dilatation Interpreted and Authenticated by: Israel Sen M.D. 03/10/22
[2022-03-11] MEDS: 0.9 % SODIUM CHLORIDE 1,000 ML IV SCH ×2 (01:41→07:31)
[2022-03-11] MEDS: PIPERACILLIN SODIUM/TAZOBACTAM 3.375 GM in DEXTROSE 5% IN WATER 50 ML IV SCH ×3 (05:34→18:00)
[2022-03-11] MEDS: 0.9 % SODIUM CHLORIDE 10 ML SYRINGE IV SCH ×3 (05:36→21:15)
[2022-03-11 06:45] LABS: Hematocrit 41.9 % (40.1-51.0); Hemoglobin 14.4 g/dL (13.7-17.5); Mean Cell Volume 88.2 fL (80.0-100.0); Mean Corpuscular HGB Conc 34.4 g/dL (31.0-36.0); Platelet Count 244 K/mcL (140-440); RBC 4.75 M/mcL (4.63-6.08); Red Cell Distribution Width 13.2 % (11.5-14.5); WBC 11.2 K/mcL (4.5-11.0)
[2022-03-11 07:09] LABS: ALT/SGPT 57 U/L (<40); ALT/SGPT 58 U/L (<40); AST/SGOT 21 U/L (<40); AST/SGOT 24 U/L (<40); Albumin 3.1 gm/dL (3.2-5.2); Albumin 3.3 gm/dL (3.2-5.2); Albumin/Globulin Ratio 0.8 (1.0-2.3); Alkaline Phosphatase 118 U/L (39-117); Bilirubin,Direct 0.3 mg/dL (<0.3); Bilirubin,Total 1.1 mg/dL (0.1-1.0); Blood Urea Nitrogen 7 mg/dL (8-23); Calcium 8.4 mg/dL (8.6-10.4); Carbon Dioxide 20 mmol/L (22-30); Chloride 104 mmol/L (96-108); Globulin 3.7 gm/dL (2.2-3.7); Globulin 3.9 gm/dL (2.2-3.7); Glomerular Filtration Rate 68; Glucose 98 mg/dL (70-105); Lactate Dehydrogenase 156 U/L (135-225); Phosphorous 2.6 mg/dL (2.5-4.5); Triglycerides 160 mg/dL (<150); Uric Acid 3.3 mg/dL (2.5-8.0)
[2022-03-11] MEDS: PANTOPRAZOLE 40 MG VIAL IV SCH ×2 (07:21→17:08)
--- NOTE | 2022-03-11 08:39 | Internal Med Progress Note ---
SUBJECTIVE Subjective Patient information: Note initiated : 03/11/22 at 8:34 am Service Date, if different from initiated Date: [] Patient: Clay Villagran a 66 y/o M admitted on 03/09/22 for n/v abd pain. Chief Complaint: [] Interval history: History of present illness: Mr. Villagran is a 66 year old M Presents to the ED nausea vomiting and abdominal pain mid abdomen. Patient is a couple days ago at the [facility] in [place] with a tree exam shows were brought in for them. He took at home and started eating in the next day which was yest erday. He noted that the sandwich tasted bad stopped eating it. Started having a little bit of upset stomach and went [place] the [place] and then started feeling really crummy developed some nausea and vomiting. Went home and continued to have nausea vomiting and developed significant abdominal pain which is initially generalized and then focused in the mid abdomen. No headaches fevers. In the ED he was worked up and found to have pancreatitis as well as urinary retention. CT abdomen also showed duodenitis without perforation and indeterminate gallbladder finding and gallbladder ultrasound pending. Patient bladder scanned for greater than 600 cc and Mariano was placed. Had a leukocytosis elevated creatinine elevated bili and mild transaminitis. Lipase found to be 6000 Patient said he has had to have a Mariano catheter in the past temporarily. Case was discussed with Dr. French who stated to get a gallbladder ultrasound. 5/3 Abdominal pain present but gradually improving. Patient tolerating clear liquids. MRCP pending. Gross hematuria resolved. Just diet and IV fluids. Monitor replace electrolytes 5/4 Patient able to tolerate clear liquids. Will advance diet. Abdominal pain pre sent but is gradually improving. MRCP did not show any choledocholithiasis. CT was concerning for cholecystitis. Liver enzymes and bili slowly improving. Review of Systems: denies headache/fever/chills/nausea/vomiting/chest pain/cough/dyspnea/diarrhea. Otherwise see above. Constitutional Vitals: Vital Signs Temp Pulse Resp BP Pulse Ox 98.8 F 89 20 129/91 94 03/11/22 06:48 03/11/22 06:48 03/11/22 06:48 03/11/22 06:48 03/11/22 06:48 Period Temp Pulse Resp BP Sys/Mohan Pulse Ox Last 24 Hr 97.9 F-99.8 F 87-95 16-20 126-145/83-91 93-97 Intake and Output 03/10/22 03/11/22 03/11/22 21:59 05:59 13:59 Intake Total 500 1410 50 Output Total 1400 2550 Balance -900 -1140 50 Weight 104.326 kg 101.831 kg Intake & Output: Intake & Output 03/10/22 03/11/22 03/11/22 21:59 05:59 13:59 Intake Total 500 1410 50 Output Total 1400 2550 Balance -900 -1140 50 Weight 104.326 kg 101.831 kg Intake: IV 50 1050 50 Sodium Chloride 0.9% 1,000 ml @ 1000 100 mls/hr IV .Q10H [facility] Rx#: [id number] Zosyn 3.375 gm In Dextrose 5% 50 50 50 in Water 50 ml @ 100 mls/hr IV Q6H [facility] Rx#:[id number] Oral 450 360 Output: Urine Catheter Amount 1400 2550 Other: Meal Dinner Percent of Meal Consumed 100% Feeding Ability Assist with Tray Set Up Urine Appearance Clear Clear Urine Color Dark Yellow [place] Urine Odor Normal Exam: General: Alert, Awake, No acute Distress, obese Eyes/N/T: EOMI, Head/Neck: neck supple, CV: RRR, No murmurs, normal s1/s2 Pulm: Clear b/l, no wheezing/rhonchi/rales Abd: soft, tender epigastrium, +BS x4 Ext: no clubbing/cyanosis/edema Neuro: Alert, no focal deficits, moves all extremities, Skin: warm/dry OBJ DATA Labs CBC & Chem 7: 03/11/22 05:15 03/11/22 05:15 Labs: Abnormal Lab Results 03/11/22 03/11/22 03/11/22 05:15 05:15 05:15 WBC 11.2 H Neut % (Auto) Lymph % (Auto) [place] # (Auto) Absolute Neutrophils Carbon Dioxide 20 L BUN 7 L Creatinine Glucose Calcium 8.4 L Phosphorus Total Bilirubin 1.1 H 1.1 H Direct Bilirubin 0.3 H 0.3 H GGT 146 H AST ALT 58 H 57 H Alkaline Phosphatase 118 H 118 H Lactate Dehydrogenase Albumin 3.1 L Globulin 3.9 H Albumin/Globulin Ratio 0.8 L Triglycerides 160 H Lipase 03/10/22 03/10/22 03/10/22 06:08 06:08 06:08 WBC 11.3 H Neut % (Auto) 78.1 H Lymph % (Auto) 13.5 L [place] # (Auto) Absolute Neutrophils 8.79 H Carbon Dioxide 20 L BUN 7 L Creatinine Glucose 115 H Calcium 8.1 L Phosphorus 2.2 L Total Bilirubin 1.2 H Direct Bilirubin 0.3 H GGT 160 H AST 54 H ALT 88 H Alkaline Phosphatase Lactate Dehydrogenase Albumin Globulin Albumin/Globulin Ratio Triglycerides 168 H Lipase 162 H 03/09/22 03/09/22 03/09/22 01:05 01:05 01:05 WBC 19.1 H Neut % (Auto) 80.6 H Lymph % (Auto) 12.8 L [place] # (Auto) 1.08 H Absolute Neutrophils 15.36 H Carbon Dioxide BUN Creatinine 1.3 H Glucose 151 H Calcium Phosphorus Total Bilirubin 1.6 H Direct Bilirubin GGT AST 113 H ALT 66 H Alkaline Phosphatase Lactate Dehydrogenase 272 H Albumin Globulin Albumin/Globulin Ratio Triglycerides Lipase Meds: Medications Albuterol/Ipratropium (Ipratropium/Albuterol 3 Ml Ampul.Neb) 3 ml NEB Q4HP PRN PRN Reason: Shortness Of Breath Docusate Sodium (Docusate Sodium 100 Mg Capsule) 100 mg PO BID [facility] Last Admin: 03/10/22 21:32 Dose: 100 mg Documented by: Finasteride (Finasteride 5 Mg Tablet) 5 mg PO QDAY [facility] Last Admin: 03/10/22 07:59 Dose: 5 mg Documented by: Heparin Sodium (Porcine) (Heparin 5,000 Unit/Ml Vial) 5,000 unit SQ Q12 [facility] Last Admin: 03/10/22 21:33 Dose: 5,000 unit Documented by: Hydromorphone HCl (Hydromorphone 0.5 Mg/0.5 Ml Syringe) 0 mg IV Q2HP PRN PRN Reason: Pain Potassium Chloride 40 meq/ (Dextrose) 520 mls @ 130 mls/hr IV UD PRN PRN Reason: Potassium < 3 Magnesium Sulfate (Magnesium Sulfate) 2 gm in 50 mls @ 50 mls/hr IV UD PRN PRN Reason: Magnesium </= 1.6 Piperacillin Sod/Tazobactam (Sod 3.375 gm/ Dextrose) 50 mls @ 100 mls/hr IV Q6H [facility]; Protocol Last Infusion: 03/11/22 06:38 Dose: Infused Documented by: Sodium Chloride (Sodium Chloride 0.9%) 1,000 mls @ 100 mls/hr IV .Q10H [facility] Last Admin: 03/11/22 07:31 Dose: Not Given Documented by: Metoclopramide HCl (Metoclopramide 10 Mg/2 Ml Vial) 10 mg IV Q6HP PRN PRN Reason: Nausea And Vomiting Naloxone HCl (Naloxone Hcl 0.4 Mg/Ml Vial) 0.1 mg IV Q2MIN PRN PRN Reason: Opiate Reversal Ondansetron HCl (Ondansetron 4 Mg/2 Ml Vial) 4 mg IV Q4HP PRN; Protocol PRN Reason: Nausea And Vomiting Pantoprazole Sodium (Pantoprazole 40 Mg Vial) 40 mg IV QAMAC [facility] Last Admin: 03/11/22 07:21 Dose: 40 mg Documented by: Polyethylene Glycol (Polyethylene Glycol 3350 17 Gm Packet) 17 gm PO DAILYP PRN PRN Reason: Constipation Last Admin: 03/10/22 08:14 Dose: 17 gm Documented by: Potassium Chloride (Potassium Chloride 20 Meq Tablet) 40 meq PO UD PRN PRN Reason: Potssium is 3-3.5 Last Admin: 03/09/22 12:41 Dose: 40 meq Documented by: Potassium Chloride (Potassium Chloride 20 Meq Tablet) 40 meq PO UD PRN PRN Reason: Potassium < 3 Senna (Sennosides 1 Tablet) 2 tab PO DAILYP PRN PRN Reason: Constipation Sodium Chloride (0.9 % Sodium Chloride 10 Ml Syringe) 10 ml IV Q8 [facility] Last Admin: 03/11/22 05:36 Dose: Not Given Documented by: Tamsulosin HCl (Tamsulosin 0.4 Mg Capsule) 0.4 mg PO BID [facility] Last Admin: 03/10/22 21:32 Dose: 0.4 mg Documented by: A/P Narrative A/P Narrative: A: *Acute pancreatitis: 2/2 likely gallstones -[place]'s =2 -Leukocytosis(improving)/Transaminitis/Llipase 6000 *Cholelithiasis: -MRCP no choledocolithiasis, ?cholecystitis *Transaminitis: 2/2 above *SIRISHA: improved *Urinary retention: h/o BPH and has seen Urology for UR *Gross Hematuria: likely traumatic mariano with enlarged prostate vascularity -resolved *Duodenitis: *Obesity: BMI 32 P: -IVF decrease and advance diet - full liquid, advance to low fat as tolerated -pain control -IV Zosyn as initial concern for cholecystitis -Dr. French following -monitor uop/electrolytes/glucose -ppi, s/p carafate -mariano placement, cont home flomax/finasteride, f/u with urology, attempt to d/c mariano when able -SSI if needed -ppx: heparin Time Spent With Patient Time: Total time spent is greater than 50% in coordination of care (as documented) at patient's floor/unit and/or counseling patient: Total time spent with greater than 50% in coordination of care (as documented) at patient's floor/unit and/or counseling patient:: 25 - 35 minutes QUALITY VTE Deep Vein Thrombosis/Pulmonary Embolism Present on Admission: No
[2022-03-11] MEDS: FINASTERIDE 5 MG TABLET PO SCH (08:48)
[2022-03-11] MEDS: DOCUSATE SODIUM 100 MG CAPSULE PO SCH ×2 (08:48→21:15)
[2022-03-11] MEDS: HEPARIN 5,000 UNIT/ML VIAL SQ SCH ×2 (08:48→21:15)
[2022-03-11] MEDS: TAMSULOSIN 0.4 MG CAPSULE PO SCH ×2 (08:48→21:15)
--- NOTE | 2022-03-11 11:25 | General Surgery Progress Note ---
SUBJECTIVE Subjective Patient information: Note initiated : 03/11/22 at 11:15 am Service Date, if different from initiated Date: [] Patient: Clay Villagran 66 y/o M admitted on 03/09/22 for n/v abd pain. Chief Complaint: [] MRCP yesterday essentially demonstrated findings consistent with acute pancreatitis without evidence of retained common duct stones. He continues to have diffuse upper abdominal pain consistent with pancreatitis but feels improved overall Constitutional Vitals: Vital Signs Temp Pulse Resp BP Pulse Ox 98.8 F 89 20 129/91 94 03/11/22 06:48 03/11/22 06:48 03/11/22 06:48 03/11/22 06:48 03/11/22 06:48 Period Temp Pulse Resp BP Sys/Mohan Pulse Ox Last 24 Hr 97.9 F-99.8 F 87-95 16-20 126-145/83-91 93-97 Intake and Output 03/10/22 03/11/22 03/11/22 21:59 05:59 13:59 Intake Total 500 1410 50 Output Total 1400 2550 Balance -900 -1140 50 Weight 230 lb 224 lb 8 oz Intake & Output: Intake & Output 03/10/22 03/11/22 03/11/22 21:59 05:59 13:59 Intake Total 500 1410 50 Output Total 1400 2550 Balance -900 -1140 50 Weight 230 lb 224 lb 8 oz Intake: IV 50 1050 50 Sodium Chloride 0.9% 1,000 ml @ 1000 100 mls/hr IV .Q10H [facility] Rx#: [id number] Zosyn 3.375 gm In Dextrose 5% 50 50 50 in Water 50 ml @ 100 mls/hr IV Q6H [facility] Rx#:[id number] Oral 450 360 Output: Urine Catheter Amount 1400 2550 Other: Meal Dinner Percent of Meal Consumed 100% Feeding Ability Assist with Tray Set Up Urine Appearance Clear Clear Urine Color Dark Yellow [place] Urine Odor Normal Exam: looks non toxic, NAD GI/Abdominal Additional comments: belly soft with diffuse upper abdominal tenderness, no peritoneal findings A/P Assessment and plan (1) Acute pancreatitis: Assessment and plan: Gallstone Pancreatitis that seems to be slowly resolving Cholecystectomy is recommended on this admission prior to discharge with a full discussion of Risks, Benefits, Potential Complications and Alternative Treatment Options. Continue clears only for now and he will talk to his family and let us know if he would like to have this done now or at a later date Status: Acute Time Spent With Patient Time: Total time spent is greater than 50% in coordination of care (as documented) at patient's floor/unit and/or counseling patient:
--- NOTE | 2022-03-11 12:29 | Internal Med Progress Note ---
SUBJECTIVE Subjective Patient information: Note initiated : 03/11/22 at 12:28 pm Service Date, if different from initiated Date: [] Patient: Clay Villagran a 66 y/o M admitted on 03/09/22 for n/v abd pain. Chief Complaint: [] Interval history: History of present illness: Mr. Villagran is a 66 year old M Presents to the ED nausea vomiting and abdominal pain mid abdomen. Patient is a couple days ago at the [facility] in [place] with a tree exam shows were brought in for them. He took at home and started eating in the next day which was yes terday. He noted that the sandwich tasted bad stopped eating it. Started having a little bit of upset stomach and [place] the [place] and then started feeling really crummy developed some nausea and vomiting. Went home and continued to have nausea vomiting and developed significant abdominal pain which is initially generalized and then focused in the mid abdomen. No headaches fevers. In the ED he was worked up and found to have pancreatitis as well as urinary retention. CT abdomen also showed duodenitis without perforation and indeterminate gallbladder finding and gallbladder ultrasound pending. Patient bladder scanned for greater than 600 cc and Mariano was placed. Had a leukocytosis elevated creatinine elevated bili and mild transaminitis. Lipase found to be 6000 Patient said he has had to have a Mariano catheter in the past temporarily. Case was discussed with Dr. French who stated to get a gallbladder ultrasound. 5/3 Abdominal pain present but gradually improving. Patient tolerating clear liquids. MRCP pending. Gross hematuria resolved. Just diet and IV fluids. Monitor replace electrolytes 5/4 Patient able to tolerate clear liquids. Will advance diet. Abdominal pain pr esent but is gradually improving. MRCP did not show any choledocholithiasis. CT was concerning for cholecystitis. Liver enzymes and bili slowly improving. 5/5 Stable overnight, cholecystectomy planned for today. Physical exam Head: Atraumatic, normal inspection. Eyes: normal appearance, no scleral icterus. Neck: full ROM Respiratory: no respiratory distress. Cardiovascular: normal rate and rhythm, S1, S2. GI/Abdominal: soft, epigastric tenderness to palpation, no guarding. Extremities: full range of motion, nontender. Neurological: CN II-XII intact, intact motor, intact sensation. Psychiatric: normal mood. Skin: warm, normal color Constitutional Vitals: Vital Signs Temp Pulse Resp BP Pulse Ox 98.8 F 89 20 129/91 94 03/11/22 06:48 03/11/22 06:48 03/11/22 06:48 03/11/22 06:48 03/11/22 06:48 Period Temp Pulse Resp BP Sys/Mohan Pulse Ox Last 24 Hr 97.9 F-99.8 F 87-89 16-20 129-145/88-91 93-97 Intake and Output 03/10/22 03/11/22 03/11/22 21:59 05:59 13:59 Intake Total 500 1410 50 Output Total 1400 2550 Balance -900 -1140 50 Weight 104.326 kg 101.831 kg Intake & Output: Intake & Output 03/10/22 03/11/22 03/11/22 21:59 05:59 13:59 Intake Total 500 1410 50 Output Total 1400 2550 Balance -900 -1140 50 Weight 104.326 kg 101.831 kg Intake: IV 50 1050 50 Sodium Chloride 0.9% 1,000 ml @ 1000 100 mls/hr IV .Q10H [facility] Rx#: [id number] Zosyn 3.375 gm In Dextrose 5% 50 50 50 in Water 50 ml @ 100 mls/hr IV Q6H [facility] Rx#:[id number] Oral 450 360 Output: Urine Catheter Amount 1400 2550 Other: Meal Dinner Percent of Meal Consumed 100% Feeding Ability Assist with Tray Set Up Urine Appearance Clear Clear Urine Color Dark Yellow [place] Urine Odor Normal OBJ DATA Labs CBC & Chem 7: 03/12/22 05:21 03/12/22 05:21 Labs: Abnormal Lab Results 03/11/22 03/11/22 03/11/22 05:15 05:15 05:15 WBC 11.2 H Neut % (Auto) Lymph % (Auto) Burke # (Auto) Absolute Neutrophils Carbon Dioxide 20 L BUN 7 L Creatinine Glucose Calcium 8.4 L Phosphorus Total Bilirubin 1.1 H 1.1 H Direct Bilirubin 0.3 H 0.3 H GGT 146 H AST ALT 58 H 57 H Alkaline Phosphatase 118 H 118 H Lactate Dehydrogenase Albumin 3.1 L Globulin 3.9 H Albumin/Globulin Ratio 0.8 L Triglycerides 160 H Lipase 03/10/22 03/10/22 03/10/22 06:08 06:08 06:08 WBC 11.3 H Neut % (Auto) 78.1 H Lymph % (Auto) 13.5 L [place] # (Auto) Absolute Neutrophils 8.79 H Carbon Dioxide 20 L BUN 7 L Creatinine Glucose 115 H Calcium 8.1 L Phosphorus 2.2 L Total Bilirubin 1.2 H Direct Bilirubin 0.3 H GGT 160 H AST 54 H ALT 88 H Alkaline Phosphatase Lactate Dehydrogenase Albumin Globulin Albumin/Globulin Ratio Triglycerides 168 H Lipase 162 H 03/09/22 03/09/22 03/09/22 01:05 01:05 01:05 WBC 19.1 H Neut % (Auto) 80.6 H Lymph % (Auto) 12.8 L [place] # (Auto) 1.08 H Absolute Neutrophils 15.36 H Carbon Dioxide BUN Creatinine 1.3 H Glucose 151 H Calcium Phosphorus Total Bilirubin 1.6 H Direct Bilirubin GGT AST 113 H ALT 66 H Alkaline Phosphatase Lactate Dehydrogenase 272 H Albumin Globulin Albumin/Globulin Ratio Triglycerides Lipase Meds: Medications Albuterol/Ipratropium (Ipratropium/Albuterol 3 Ml Ampul.Neb) 3 ml NEB Q4HP PRN PRN Reason: Shortness Of Breath Docusate Sodium (Docusate Sodium 100 Mg Capsule) 100 mg PO BID [facility] Last Admin: 03/11/22 08:48 Dose: 100 mg Documented by: Finasteride (Finasteride 5 Mg Tablet) 5 mg PO QDAY [facility] Last Admin: 03/11/22 08:48 Dose: 5 mg Documented by: Heparin Sodium (Porcine) (Heparin 5,000 Unit/Ml Vial) 5,000 unit SQ Q12 [facility] Last Admin: 03/11/22 08:48 Dose: 5,000 unit Documented by: Hydromorphone HCl (Hydromorphone 0.5 Mg/0.5 Ml Syringe) 0 mg IV Q2HP PRN PRN Reason: Pain Potassium Chloride 40 meq/ (Dextrose) 520 mls @ 130 mls/hr IV UD PRN PRN Reason: Potassium < 3 Magnesium Sulfate (Magnesium Sulfate) 2 gm in 50 mls @ 50 mls/hr IV UD PRN PRN Reason: Magnesium </= 1.6 Piperacillin Sod/Tazobactam (Sod 3.375 gm/ Dextrose) 50 mls @ 100 mls/hr IV Q6H [facility]; Protocol Last Admin: 03/11/22 11:57 Dose: 100 mls/hr Documented by: Metoclopramide HCl (Metoclopramide 10 Mg/2 Ml Vial) 10 mg IV Q6HP PRN PRN Reason: Nausea And Vomiting Naloxone HCl (Naloxone Hcl 0.4 Mg/Ml Vial) 0.1 mg IV Q2MIN PRN PRN Reason: Opiate Reversal Ondansetron HCl (Ondansetron 4 Mg/2 Ml Vial) 4 mg IV Q4HP PRN; Protocol PRN Reason: Nausea And Vomiting Pantoprazole Sodium (Pantoprazole 40 Mg Vial) 40 mg IV BIDAC [facility] Polyethylene Glycol (Polyethylene Glycol 3350 17 Gm Packet) 17 gm PO DAILYP PRN PRN Reason: Constipation Last Admin: 03/10/22 08:14 Dose: 17 gm Documented by: Potassium Chloride (Potassium Chloride 20 Meq Tablet) 40 meq PO UD PRN PRN Reason: Potssium is 3-3.5 Last Admin: 03/09/22 12:41 Dose: 40 meq Documented by: Potassium Chloride (Potassium Chloride 20 Meq Tablet) 40 meq PO UD PRN PRN Reason: Potassium < 3 Senna (Sennosides 1 Tablet) 2 tab PO DAILYP PRN PRN Reason: Constipation Sodium Chloride (0.9 % Sodium Chloride 10 Ml Syringe) 10 ml IV Q8 [facility] Last Admin: 03/11/22 05:36 Dose: Not Given Documented by: Tamsulosin HCl (Tamsulosin 0.4 Mg Capsule) 0.4 mg PO BID [facility] Last Admin: 03/11/22 08:48 Dose: 0.4 mg Documented by: A/P Narrative A/P Narrative: A: *Acute pancreatitis: 2/2 likely gallstones -[place]'s =2 *Cholelithiasis: -MRCP no choledocolithiasis, ?cholecystitis *Transaminitis: 2/2 above *SIRISHA: improved *Urinary retention: h/o BPH and has seen Urology for UR *Gross Hematuria: likely traumatic mariano with enlarged prostate vascularity -resolved *Duodenitis: *Obesity: BMI 32 P: -Cholecystectomy today. -pain control -IV Zosyn as initial concern for cholecystitis -Dr. French following -monitor uop/electrolytes/glucose -ppi, s/p carafate -mariano placement, cont home flomax/finasteride, f/u with urology, attempt to d/c mariano when able -SSI if needed -ppx: heparin Time Spent With Patient Time: Total time spent is greater than 50% in coordination of care (as documented) at patient's floor/unit and/or counseling patient: QUALITY VTE Deep Vein Thrombosis/Pulmonary Embolism Present on Admission: No
[2022-03-12] MEDS: PIPERACILLIN SODIUM/TAZOBACTAM 3.375 GM in DEXTROSE 5% IN WATER 50 ML IV SCH ×5 (00:09→23:36)
[2022-03-12] MEDS: 0.9 % SODIUM CHLORIDE 10 ML SYRINGE IV SCH ×5 (00:09→21:15)
[2022-03-12] MEDS ORDERED: SCOPOLAMINE 1 PATCH PATCH TOPICAL PRN (06:00)
[2022-03-12] MEDS ORDERED: IPRATROPIUM/ALBUTEROL 3 ML AMPUL.NEB NEB PRN ×2 (06:00→13:54)
[2022-03-12 06:48] LABS: Basophils # (Auto) 0.05 K/mcL (0.00-0.30); Basophils % (Auto) 0.5 % (0.0-2.0); Eosinophils # (Auto) 0.37 K/mcL (0.00-0.70); Eosinophils % (Auto) 3.5 % (0.0-7.0); Hematocrit 41.6 % (40.1-51.0); Lymphocytes # (Auto) 2.59 K/mcL (1.50-4.80); Lymphocytes % (Auto) 24.7 % (15.5-49.0); Mean Cell Volume 87.2 fL (80.0-100.0); Mean Corpuscular HGB Conc 33.7 g/dL (31.0-36.0); Mean Platelet Volume 9.8 fL (7.4-10.4); Monocytes % (Auto) 8.6 % (1.0-12.0); Neutrophils % (Auto) 62.7 % (38.0-78.0); Platelet Count 270 K/mcL (140-440); RBC 4.77 M/mcL (4.63-6.08); WBC 10.5 K/mcL (4.5-11.0)
[2022-03-12 07:23] LABS: ALT/SGPT 46 U/L (<40); AST/SGOT 19 U/L (<40); Albumin 3.4 gm/dL (3.2-5.2); Albumin/Globulin Ratio 0.9 (1.0-2.3); Alkaline Phosphatase 119 U/L (39-117); Bilirubin,Direct 0.2 mg/dL (<0.3); Bilirubin,Total 0.9 mg/dL (0.1-1.0); Blood Urea Nitrogen 7 mg/dL (8-23); Calcium 8.7 mg/dL (8.6-10.4); Carbon Dioxide 20 mmol/L (22-30); Chloride 105 mmol/L (96-108); Globulin 3.8 gm/dL (2.2-3.7); Glomerular Filtration Rate 61; Glucose 95 mg/dL (70-105); Lactate Dehydrogenase 149 U/L (135-225); Phosphorous 3.4 mg/dL (2.5-4.5); Triglycerides 172 mg/dL (<150); Uric Acid 3.5 mg/dL (2.5-8.0)
[2022-03-12] MEDS: PANTOPRAZOLE 40 MG VIAL IV SCH ×2 (08:32→16:27)
[2022-03-12] MEDS: DOCUSATE SODIUM 100 MG CAPSULE PO SCH ×2 (09:21→21:15)
[2022-03-12] MEDS: TAMSULOSIN 0.4 MG CAPSULE PO SCH ×2 (09:23→21:15)
[2022-03-12] MEDS: FINASTERIDE 5 MG TABLET PO SCH (09:23)
--- NOTE | 2022-03-12 12:45 | General Surgery Progress Note ---
SUBJECTIVE Subjective Patient information: Note initiated : 03/12/22 at 12:37 pm Service Date, if different from initiated Date: [] Patient: Clay Villagran 66 y/o M admitted on 03/09/22 for n/v abd pain. Chief Complaint: [] Continues to feel improved overall, wants to go ahead with surgery as planned today. Constitutional Vitals: Vital Signs Temp Pulse Resp BP Pulse Ox 97.7 F 90 16 116/85 97 03/12/22 11:30 03/12/22 11:30 03/12/22 11:30 03/12/22 11:30 03/12/22 11:30 Period Temp Pulse Resp BP Sys/Mohan Pulse Ox Last 24 Hr 97.2 F-98.9 F 79-90 16-20 116-134/82-93 93-97 Intake and Output 03/11/22 03/12/22 03/12/22 21:59 05:59 13:59 Intake Total 850 50 50 Output Total 850 1850 350 Balance 0 -1800 -300 Weight 224 lb Intake & Output: Intake & Output 03/11/22 03/12/22 03/12/22 21:59 05:59 13:59 Intake Total 850 50 50 Output Total 850 1850 350 Balance 0 -1800 -300 Weight 224 lb Intake: IV 50 50 50 Zosyn 3.375 gm In Dextrose 5% 50 50 50 in Water 50 ml @ 100 mls/hr IV Q6H [facility] Rx#:[id number] Oral 800 Output: Urine Catheter Amount 850 1850 350 Other: Meal Dinner Percent of Meal Consumed 100% Feeding Ability Independent Urine Appearance Hematuria Clear Hematuria Fem Cath Hematuria Urine Color [place] Bright Yellow Dark Asiya Blood Tinged Fem Cath [place] Urine Odor Normal Normal Normal Exam: Looks well, NAD Respiratory Respiratory exam: Present normal respiratory exam Cardiovascular Cardiovascular exam: Present normal rate and rhythm and RRR GI/Abdominal Additional comments: belly remains soft and non distended, minimally tender across the upper abdomen Extremities Exam Additional comments: well perfused Neurological Exam Additional comments: awake and alert A/P Assessment and plan (1) Cholelithiasis NOS: Assessment and plan: Biliary Pancreatitis Will plan for Lap Cholecystectomy today All issues discussed at length including Risks, Benefits, Potential Complications and Alternative Treatment Options are all discussed at length. He relates for the first time today in our discussions that he would like to keep his gallbladder due to rastafari/cultural reasons. I have explained that I will have to defer to whatever the institutional policy is regarding this and that I believe but am not entirely certain that will be allowed but that we can certainly hold off on going ahead with this for now if that's a significant enough issue for him that he wouldn't want to otherwise proceed. He indicates he would like to go ahead and all issues and potential scenarios are discussed including possible conversion to open, drain placement, subtotal or partial removal and other issues as well. He indicates he would like to proceed. Status: Acute Time Spent With Patient Time: Total time spent is greater than 50% in coordination of care (as documented) at patient's floor/unit and/or counseling patient:
[2022-03-12] MEDS ORDERED: MAGNESIUM SULFATE 2 GM/50 ML BAG IV ONE (12:59)
[2022-03-12] MEDS ORDERED: ePHEDrine 50 MG/5 ML SYRINGE (ANEST) IV ONE (12:59)
[2022-03-12] MEDS ORDERED: SUGAMMADEX SODIUM 200 MG/2 ML VIAL IV ONE (12:59)
[2022-03-12] MEDS ORDERED: LIDOCAINE HCL/PF 100 MG/5 ML SYRINGE IV ONE (12:59)
[2022-03-12] MEDS ORDERED: HYDROmorphone 1 MG/ML SYRINGE ONE (12:59)
[2022-03-12] MEDS ORDERED: PROPOFOL 200 MG/20 ML VIAL IV ONE (12:59)
[2022-03-12] MEDS ORDERED: ONDANSETRON 4 MG/2 ML VIAL ONE (12:59)
[2022-03-12] MEDS ORDERED: DEXAMETHASONE 10 MG/ML VIAL ONE (12:59)
[2022-03-12] MEDS ORDERED: ROCURONIUM 10 MG/ML ML IV ONE (12:59)
[2022-03-12] MEDS ORDERED: KETAMINE 50 MG/ML Syringe (ANEST) IV ONE (12:59)
[2022-03-12] MEDS ORDERED: BUPIVACAINE W/EPI 0.5% 50 ML VIAL IJ ONE (13:43)
[2022-03-12] MEDS ORDERED: ONDANSETRON 4 MG/2 ML VIAL IV PRN (13:54)
[2022-03-12] MEDS ORDERED: METOCLOPRAMIDE 10 MG/2 ML VIAL IV PRN (13:54)
[2022-03-12] MEDS ORDERED: MEPERIDINE 25 MG/ML VIAL IV PRN (13:54)
[2022-03-12] MEDS ORDERED: diphenhydrAMINE 50 MG/ML VIAL IV PRN (13:54)
[2022-03-12] MEDS ORDERED: ACETAMINOPHEN 1,000 MG/100 ML BAG IV ONE (13:54)
[2022-03-12] MEDS ORDERED: LABETALOL 5 MG/ML ML IV PRN (13:54)
[2022-03-12] MEDS ORDERED: NALOXONE HCL 0.4 MG/ML VIAL IV PRN (13:54)
[2022-03-12] MEDS ORDERED: PROMETHAZINE 25 MG/ML VIAL IV PRN (13:54)
[2022-03-12] MEDS ORDERED: HYDROmorphone 0.5 MG/0.5 ML SYRINGE IV PRN (13:54)
[2022-03-12] MEDS ORDERED: fentaNYL 100 MCG/2 ML VIAL IV PRN (13:54)
[2022-03-12] MEDS ORDERED: LACTATED RINGERS 250 ML IV PRN (13:54)
[2022-03-12] MEDS ORDERED: LACTATED RINGERS 1,000 ML IV SCH (14:00)
--- NOTE | 2022-03-12 15:12 | Brief Operative Note ---
Brief Operative Note Date of procedure: 03/12/22 Pre-op diagnosis: Symptomatic Cholelithiasis Post-op diagnosis: same Procedure: Laparoscopic Cholecystectomy Grafts/Implants: No Anesthesia: GETA Findings: enlarged edematous gallbladder packed full of stones Surgeon: Delfin French Estimated blood loss (cc): 5 Specimens Removed/Pathology: other (gallbladder ) Condition: stable Disposition: PACU
[2022-03-12] MEDS ORDERED: oxyCODONE HCL 5 MG TABLET PO PRN (15:47)
[2022-03-13] MEDS: 0.9 % SODIUM CHLORIDE 10 ML SYRINGE IV SCH ×2 (05:53→14:10)
[2022-03-13] MEDS: PIPERACILLIN SODIUM/TAZOBACTAM 3.375 GM in DEXTROSE 5% IN WATER 50 ML IV SCH ×2 (05:53→11:58)
[2022-03-13] MEDS: PANTOPRAZOLE 40 MG VIAL IV SCH (07:40)
[2022-03-13 08:05] LABS: Basophils # (Auto) 0.01 K/mcL (0.00-0.30); Basophils % (Auto) 0.1 % (0.0-2.0); Eosinophils # (Auto) 0.01 K/mcL (0.00-0.70); Eosinophils % (Auto) 0.1 % (0.0-7.0); Hematocrit 38.3 % (40.1-51.0); Hemoglobin 13.5 g/dL (13.7-17.5); Lymphocytes # (Auto) 1.48 K/mcL (1.50-4.80); Lymphocytes % (Auto) 11.4 % (15.5-49.0); Mean Cell Volume 86.7 fL (80.0-100.0); Mean Corpuscular HGB Conc 35.2 g/dL (31.0-36.0); Mean Platelet Volume 9.5 fL (7.4-10.4); Monocytes # (Auto) 0.76 K/mcL (0.10-0.90); Monocytes % (Auto) 5.9 % (1.0-12.0); Neutrophils % (Auto) 82.5 % (38.0-78.0); Platelet Count 294 K/mcL (140-440); RBC 4.42 M/mcL (4.63-6.08); Red Cell Distribution Width 12.9 % (11.5-14.5); WBC 12.9 K/mcL (4.5-11.0)
[2022-03-13 08:32] LABS: ALT/SGPT 60 U/L (<40); AST/SGOT 44 U/L (<40); Albumin 3.4 gm/dL (3.2-5.2); Albumin/Globulin Ratio 0.9 (1.0-2.3); Alkaline Phosphatase 120 U/L (39-117); Bilirubin,Direct 0.2 mg/dL (<0.3); Bilirubin,Total 0.7 mg/dL (0.1-1.0); Blood Urea Nitrogen 10 mg/dL (8-23); Calcium 8.6 mg/dL (8.6-10.4); Carbon Dioxide 20 mmol/L (22-30); Chloride 101 mmol/L (96-108); Globulin 3.7 gm/dL (2.2-3.7); Glomerular Filtration Rate 61; Glucose 115 mg/dL (70-105); Lactate Dehydrogenase 165 U/L (135-225); Phosphorous 3.7 mg/dL (2.5-4.5); Triglycerides 141 mg/dL (<150); Uric Acid 3.6 mg/dL (2.5-8.0)
[2022-03-13] MEDS: TAMSULOSIN 0.4 MG CAPSULE PO SCH (10:21)
[2022-03-13] MEDS: FINASTERIDE 5 MG TABLET PO SCH (10:21)
[2022-03-13] MEDS: DOCUSATE SODIUM 100 MG CAPSULE PO SCH (10:21)
--- NOTE | 2022-03-13 11:56 | General Surgery Progress Note ---
SUBJECTIVE Subjective Patient information: Note initiated : 03/13/22 at 9:53 am Service Date, if different from initiated Date: [] Patient: Clay Villagran 66 y/o M admitted on 03/09/22 for n/v abd pain. Chief Complaint: [] Feels well this am, hoping for discharge later today, passing gas with minimal pain Constitutional Vitals: Vital Signs Temp Pulse Resp BP Pulse Ox 97.0 F 84 16 131/82 92 03/13/22 11:17 03/13/22 11:17 03/13/22 11:17 03/13/22 11:17 03/13/22 11:17 Period Temp Pulse Resp BP Sys/Mohan Pulse Ox Last 24 Hr 97.0 F-98.5 F 76-91 07-30 99-147/68-98 89-97 Intake and Output 03/12/22 03/13/22 03/13/22 21:59 05:59 13:59 Intake Total 1750 890 50 Output Total 400 1350 Balance 1350 -460 50 Weight 226 lb 8 oz Intake & Output: Intake & Output 03/12/22 03/13/22 03/13/22 21:59 05:59 13:59 Intake Total 1750 890 50 Output Total 400 1350 Balance 1350 -460 50 Weight 226 lb 8 oz Intake: IV 150 50 50 Zosyn 3.375 gm In Dextrose 5% 50 50 50 in Water 50 ml @ 100 mls/hr IV Q6H [facility] Rx#:[id number] Oral 840 IV - Manual Only 1600 Output: Urine Catheter Amount 400 1350 Other: Urine Appearance Clear Clear Clear Fem Cath Clear Uretheral (Rodrigues) Clear Urine Color Dark Yellow Light Asiya Light Asiya Fem Cath Dark [place] Urine Odor Normal Normal Exam: looks well, non toxic GI/Abdominal Additional comments: belly soft anbd non tender, non distended, trocar sites intact A/P Assessment and plan (1) Acute pancreatitis: Status: Acute Plan POD #1 Lap Cholecystectomy Doing Well OK for discharge from surgical standpoint today Clinic follow up with Dr French in 1- 2 weeks Contact information provided should any questions or concerns arise Time Spent With Patient Time: Total time spent is greater than 50% in coordination of care (as documented) at patient's floor/unit and/or counseling patient:
--- NOTE | 2022-03-13 12:24 | Operative Note ---
DATE OF OPERATION: 03/12/2022 PREOPERATIVE DIAGNOSIS: Symptomatic cholelithiasis with recent bout of biliary pancreatitis. POSTOPERATIVE DIAGNOSIS: Symptomatic cholelithiasis with recent bout of biliary pancreatitis. OPERATIVE PROCEDURE: Laparoscopic cholecystectomy. SURGEON: Delfin French M.D. ANESTHESIA: General. PREOPERATIVE MEDICATION Zosyn 3.375 g IV. INDICATIONS: The patient is a 66-year-old male who came to the emergency room several days ago with a bout of what ultimately turned out to be acute pancreatitis with suggestions of biliary pancreatitis based on a gallbladder that was full of stones. We were asked to see him in consultation. Risks, benefits, potential complications, and alternative treatment options were all discussed at length. These include, but are not limited to bleeding, infection, cosmetic dissatisfaction, abnormal scar, potential for injury to surrounding structures, conversion to open procedure, subtotal or partial cholecystectomy, drain placement, and other issues and gave full informed consent and was aware of the option to not undergo surgery as well, if he so wished. He wished to go ahead with the surgery and we agreed to do it on this particular day for him. PROCEDURE IN DETAIL: The patient was taken to the OR and placed supine on the OR table, placed under general anesthesia and intubated. Bilateral SCDs were applied. All pressure sensitive areas were carefully padded. The abdomen was then widely prepped and draped in a sterile fashion. Arms were placed out on arm boards under the direction of the entire OR team. Procedure began with access to the peritoneal cavity utilizing a 0-degree, 5 mm scope through a Visiport in the right upper abdomen. Once we had obtained pneumoperitoneum with high-flow CO2 insufflation, the area of access was assessed to make sure there was no evidence of injury; none was seen. We then changed out the 0-degree scope to 30-degree scope and placed our remaining trocars. This included a 5 mm additional right upper abdominal trocar, a 5 mm supraumbilical trocar, and then a 12 mm subxiphoid trocar. Once we had obtained access with all of our trocars, the patient was then placed in reverse Trendelenburg position and airplaned towards the left side. The gallbladder was then identified and grasped and retracted cephalad towards the right. The right shoulder was very edematous and enlarged and distended and appeared to be just packed full of stones. There was edema extending from the gallbladder down into the oxana. It was clear that there was residual edema and swelling from his pancreatitis. We were gradually able to expose the lateral aspect of the infundibulum and then came across and dissected out the hepatocystic triangle, which was edematous, but otherwise fairly amenable to dissection. The cystic duct was able to be identified at its junction point with the neck of the gallbladder and then we dissected out the entire hepatocystic triangle both anteriorly and posteriorly until we had a very clear and obvious critical view of safety. The cystic artery was taken down high up on the gallbladder amongst its branches and pushed down and away without formal clipping. We then performed a very extensive cystic plate dissection to make sure that there were no interposed structures medially; none were seen. Once we had obtained a very broad and clear critical view of safety, photodocumentation was obtained. Next, we transected the gallbladder at its junction point with the neck and the cystic duct. We grasped the neck of the gallbladder and retracted it towards the right shoulder as well and then very quickly completed the remainder of the dissection as most of this had already been completed. The gallbladder was entirely mobilized up out of the gallbladder fossa, placed in an EndoCatch, and taken out through the 12 mm subxiphoid trocar with some difficulty, given the degree of stony impaction in the gallbladder itself. It was difficult to extract, but ultimately we were able to do this with just minimal enlargement of the fascial opening. Next, we re-placed the trocar briefly and then irrigated the area out extensively, making sure there was no active bleeding or hemorrhage; none was seen. I elected to not place a drain. The cystic duct stump appeared to be fully hemostatic without any evidence of active bleeding or biliary leakage. Next, we removed the 12 mm trocar and closed the fascia with a running 0 Vicryl stitch externally, as I was unable to use or deploy the inlet closure device given the inability to maintain insufflation while we did this. We then irrigated out a final time and made sure there was no active bleeding or hemorrhage, removed our remaining trocars under direct vision, and relieved pneumoperitoneum. Once pneumoperitoneum was relieved, we then closed the incisions with interrupted 3-0 Vicryl sutures in the deep and subdermal layers. The skin was closed with interrupted 4-0 Monocryl suture. Steri-Strips and sterile dressings were applied. The patient was awakened, extubated, and transferred to PACU in satisfactory condition. No apparent complications or issues. Sponge and instrument counts were correct. Findings as discussed above. There was no substantial blood loss. [id number]:teri Job ID: [id number] Doc ID: [id number] Delfin French M.D.
--- NOTE | 2022-03-13 13:32 | Discharge Summary ---
Discharge Provider Provider Patient information: Note initiated : 03/13/22 at 1:30 pm Service Date, if different from initiated Date: [] Patient: Clay Villagran 66 y/o M admitted on 03/09/22 for n/v abd pain. Chief Complaint: [] Date of admission: 03/09/22 06:58 Discharge date: 03/13/22 Primary care physician: Joel Medina Consults: 03/09/22 Consult to Physician [CONS] Stat Comment: Consulting Provider: Eder Lion Reason For Exam: Physician to Consult 03/09/22 11:45 Consult to Physician [CONS] Routine Comment: Acute cholecystitis Consulting Provider: Delfin French Reason For Exam: Physician to Consult Discharge Meds Discharge Medications Home Medications finasteride 5 mg tablet (Proscar) 5 mg PO QDAY #60 tab 09/28/16 [Rx Confirmed 03/09/22 Last Taken 03/08/22] tamsulosin 0.4 mg capsule 0.4 mg PO .Twice a day #120 cap 09/28/16 [Rx Confirmed 03/09/22 Last Taken 03/08/22] acetaminophen 500 mg tablet (Tylenol Extra Strength) 500 mg PO Q6H PRN #30 tab 03/13/22 [Rx Last Taken Unknown] oxycodone 5 mg tablet 5 mg PO Q4-6HP PRN #7 tab 03/13/22 [Rx Last Taken Unknown] polyethylene glycol 3350 17 gram oral powder packet (HealthyLax) 17 g PO DAILYP PRN #30 ea 03/13/22 [Rx Last Taken Unknown] sennosides 8.6 mg tablet (Senna Lax) 17.2 mg PO DAILYP PRN #30 tab 03/13/22 [Rx Last Taken Unknown] COURSE Hospital Course Hospital course: Mr. Villagran is a 66 year old M Presents to the ED nausea vomiting and abdominal pain mid abdomen. Patient is a couple days ago at the [facility] in [place] with a tree exam shows were brought in for them. He took at home and started eating in the next day which was yesterday. He noted that the sandwich tasted bad stopped eating it. Started having a little bit of upset stomach and [place] the [place] and then started feeling really crummy developed some nausea and vomiting. Went home and continued to have nausea vomiting and developed significant abdominal pain which is initially generalized and then focused in the mid abdomen. No headaches fevers. In the ED he was worked up and found to have pancreatitis as well as urinary retention. CT abdomen also showed duodenitis without perforation and indeterminate gallbladder finding and gallbladder ultrasound pending. Patient bladder scanned for greater than 600 cc and Rodrigues was placed. Had a leukocytosis elevated creatinine elevated bili and mild transaminitis. Lipase found to be 6000 Patient said he has had to have a Rodrigues catheter in the past temporarily. Case was discussed with Dr. French who stated to get a gallbladder ultrasound. 03/10 Abdominal pain present but gradually improving. Patient tolerating clear liquids. MRCP pending. Gross hematuria resolved. Just diet and IV fluids. Monitor replace electrolytes 03/11 Patient able to tolerate clear liquids. Will advance diet. Abdominal pain present but is gradually improving. MRCP did not show any choledocholithiasis. CT was concerning for cholecystitis. Liver enzymes and bili slowly improving. 03/12 Stable overnight, cholecystectomy planned for today. 03/13 The patient had an uncomplicated laparoscopic cholecystectomy yesterday. Stable overnight, the patient had a bowel movement this morning and passing gas. Diet advanced to clear liquid then regular diet which the patient tolerated for lunch. Discussed plan with general surgery, okay to discharge to home if the patient tolerates a regular diet. Patient was discharged home, follow-up with general surgery. Physical exam Head: Atraumatic, normal inspection. Eyes: normal appearance, no scleral icterus. Neck: full ROM Respiratory: no respiratory distress. Cardiovascular: normal rate and rhythm, S1, S2. GI/Abdominal: Surgical incisions covered with clean bandages soft, epigastric tenderness to palpation, no guarding. Extremities: full range of motion, nontender. Neurological: CN II-XII intact, intact motor, intact sensation. Psychiatric: normal mood. Skin: warm, normal color Discharge diagnosis: Acute gallstone pancreatitis Secondary discharge diagnosis: Cholelithiasis Time Spent with Patient Time attestation: Total time spent providing and/or coordinating discharge services: 20 minutes EXAM Constitutional Vitals: Temp Pulse Resp BP Pulse Ox 97.0 F 84 16 131/82 92 03/13/22 11:17 03/13/22 11:17 03/13/22 11:17 03/13/22 11:17 03/13/22 11:17 Discharge Data Data Completed and Pending Labs on day of discharge: Labs from last 24 hours 03/13/22 03/13/22 07:38 07:38 WBC 12.9 H RBC 4.42 L Hgb 13.5 L Hct 38.3 L MCV 86.7 MCH 30.5 MCHC 35.2 RDW 12.9 Plt Count 294 MPV 9.5 Neut % (Auto) 82.5 H Lymph % (Auto) 11.4 L [place] % (Auto) 5.9 Eos % (Auto) 0.1 Baso % (Auto) 0.1 Lymph # (Auto) 1.48 L [place] # (Auto) 0.76 Eos # (Auto) 0.01 Baso # (Auto) 0.01 Absolute Neutrophils 10.67 H Sodium 133 Potassium 3.9 Chloride 101 Carbon Dioxide 20 L Anion Gap 12.0 BUN 10 Creatinine 1.2 GFR Calculation 61 Glucose 115 H Uric Acid 3.6 Calcium 8.6 Phosphorus 3.7 Magnesium 2.5 Total Bilirubin 0.7 Direct Bilirubin 0.2 GGT 160 H AST 44 H ALT 60 H Alkaline Phosphatase 120 H Lactate Dehydrogenase 165 Total Protein 7.1 Albumin 3.4 Globulin 3.7 Albumin/Globulin Ratio 0.9 L Triglycerides 141 Preliminary micro results at discharge 03/09/22 03:08 Blood Culture - Preliminary Blood 03/09/22 02:50 Blood Culture - Preliminary Blood Discharge Plan Patient/Caregiver Discharge Instructions Activity: increase activity as tolerated Diet: Regular Diet Instructions: Laparoscopic Cholecystectomy (DC) Activity Restrictions/Additional Instructions: keep dressings and incisions clean and dry. ice packs to incisions as tolerated next 3-4 days. ok to shower but no soaking - pools, baths, hot tubs, etc. no lifting over 10-20 lbs until seen in clinic. Call Dr French at [phone] if any questions or concerns. This discharge packet is provided to you to help keep you informed about your care. We want to ensure you get everything you need when you go home. You will also be receiving a call from us in a few days to follow up with you and see how you are doing since your discharge. This gives us a chance to listen to any concerns you maybe experiencing since you were discharged or any additional needs you may have, as well as providing us feedback on your care experience. We strive to always provide excellent care and thank you for your feedback and for choosing [facility]. Prescriptions: New oxycodone 5 mg Tablet 5 mg PO Q4-6HP PRN (Reason: Per Pain Protocol) Qty: 7 0RF sennosides [Senna Lax] 8.6 mg Tablet 17.2 mg PO DAILYP PRN (Reason: Constipation) Qty: 30 0RF polyethylene glycol 3350 [HealthyLax] 17 gram Powder In Packet 17 g PO DAILYP PRN (Reason: Constipation) Qty: 30 0RF acetaminophen [Tylenol Extra Strength] 500 mg tablet 500 mg PO Q6H PRN (Reason: pain) Qty: 30 0RF Continued tamsulosin 0.4 mg capsule,extended release 24hr 0.4 mg PO .Twice a day Qty: 120 5RF finasteride [Proscar] 5 mg tablet 5 mg PO QDAY Qty: 60 8RF Follow Up Plan Follow up with: Delfin French MD [Physician] - 03/26/22 1:00 pm Joel Medina MD [Primary Care Provider] - (as needed. ) Patient Disposition: Home, Self-Care Prognosis: Serious Overall status at discharge: patient is progressing back to baseline Discharge Orders: Discharge Order (Routine); Ordered 03/13/22 Ordered By: Levar Montanez QUALITY VTE Deep Vein Thrombosis/Pulmonary Embolism Present on Admission: No
== END 2022-03-13 14:50 | disposition home or self-care (01) | DRG 418 ==
LOC: ED 00:52 → MEDSUR 06:58
PROVIDERS: ADMIT Internal Medicine; ATTEND Internal Medicine

== ENCOUNTER 2023-01-08 14:30 | Inpatient (IN) ==
--- NOTE | 2023-01-08 15:11 | Emergency Department Note ---
HPI General Chief complaint: Cold/Flu Symptoms Stated complaint: Urological Time Seen by Provider: 01/08/23 15:10 Source: patient Mode of arrival: wheelchair Limitations: no limitations History of Present Illness HPI Narrative: Narrative: Patient presents from urology clinic with a complaint of confusion, shaking and abdominal pain. Patient was referred to urology from his primary care office for concern of prostate enlargement. Patient has had urinary retention on a couple of occasions over the last few months and has had to have a Rodrigues catheter. He is reports that after the catheter was removed he has been able to pee and believes he is able to pee at this time. He does have some right abdominal discomfort which occurred on a prior occasion when he had urinary distention. He has not had hospital admission for this problem. He has no prior history of prostate problems. He does not feel as if he been febrile or chilled. He has not had any nausea or vomiting. Related Data Home Medications Medication Instructions Recorded Confirmed acetaminophen 500 mg tablet 1,000 mg PO QID PRN Back Pain 01/08/23 01/08/23 (Tylenol Extra Strength) Allergies Allergy/AdvReac Type Severity Reaction Status Date / Time No Known Drug Allergies Allergy Verified 03/09/22 00:56 Review of Systems ROS ROS Narrative: Narrative: Pertinent positives and negatives as noted in HPI. All other systems reviewed and negative. [facility] Narrative Patient History Narrative: Narrative: Medical/Surgical/Family History All Active Problems (Updated 01/08/23 @ 23:50 by Lacy Serna PA-C) Left lower quadrant pain (Chronic) Prostate mass (Chronic) Change in bowel movement (Chronic) Acute pancreatitis (Chronic) Acute urinary retention (Chronic) Acute duodenitis (Chronic) Cholelithiasis NOS (Chronic) BPH (benign prostatic hyperplasia) (Chronic) Chest pain (Chronic) Alcohol abuse (Chronic) Chronic airway obstruction (Chronic) Abdominal pain (Acute) Sepsis (Acute) Acute urinary retention (Acute) Acute UTI (Acute) Enlarged prostate (Acute) Medical History Acute duodenitis Acute pancreatitis Acute urinary retention Alcohol abuse BPH (benign prostatic hyperplasia) Change in bowel movement Chest pain Cholelithiasis NOS Chronic airway obstruction Left lower quadrant pain Nonspecific reaction to 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 Skin: Warm. Dry. No rash. Normal color. Eyes: PERRL. EOMI. Mouth: Membranes moist. Normal inspection. Neck: Good ROM. No meningeal signs. Supple. Cardiovascular: Regular rate and rhythm. No murmur. Respiratory: Tachypnea, nonlabored. Breath sounds equal. No wheezing/rales/rhonchi. Gastrointestinal: Abdomen soft. Focal right mid abdominal tenderness. Tenderness. Mild distention. Normal bowel sounds. No rebound tenderness or guarding. Back: Normal inspection. No CVA tenderness. No midline tenderness. Extremities: No tenderness. No swelling. No erythema. No edema. Neurological: No focal neurological deficits observed. Alert. Oriented x 3 General Limitations: no limitations Course Course Course Narrative: The following orders are placed and reviewed by myself: CBC and CHEM panel reviewed White count is 18,000 Creatinine is 2.5 with a prior of 1.4 on November 19, 2022. BUN is 29 with a prior of 11 on November 19. Bladder scan shows over 1000 cc of urine in the patient has difficulty providing any sort of urine sample. A small sample is obtained which is sent to lab for urinalysis. No significant change in bladder capacity after void. Rodrigues catheter was placed and the patient voids 1700 UA is positive, cultures pending After 1 hour the patient has 300 cc of urine output. Following our patient has less than 100 cc Patient does develop fever of 101.6. This is accompanied by rigors. Patient medicated with Tylenol for fever. And fluid resuscitation is initiated with 30 mL/kg of normal saline. Patient initially being observed for postobstructive diuresis which does not appear to be present. Initial anticipation was to discharge patient home on antibiotics for urinary tract infection with urinary obstruction medicated by temporary Rodrigues catheter placement. Patient did develop fever while here in the emergency department and with markedly elevated white count and concern for confusion prior to coming the emergency department patient admitted to the hospitalist service for concern of sepsis related to urinary tract infection. Vital Signs Vital signs: Vital Signs Temperature 98.4 F 01/08/23 14:35 Pulse Rate 85 01/08/23 14:35 Respiratory Rate 17 01/08/23 14:35 Blood Pressure 112/76 01/08/23 14:35 Pulse Oximetry (%) 99 01/08/23 14:35 Oxygen Delivery Method Room Air 01/08/23 14:35 Temperature 100.0 F H 01/08/23 23:11 Pulse Rate 89 01/08/23 23:11 Respiratory Rate 16 01/08/23 23:11 Blood Pressure 117/78 01/08/23 23:11 Pulse Oximetry (%) 98 01/08/23 23:11 Oxygen Delivery Method Room Air 01/08/23 23:11 MDM MDM Narrative Medical decision making narrative: Narrative: Lab Data 01/08/23 15:20 Labs: Lab Results 01/08/23 01/08/23 01/08/23 Range/Units 15:15 15:20 15:28 WBC 18.8 H (4.5-11.0) K/mcL RBC 4.70 (4.63-6.08) M/mcL Hgb 13.7 (13.7-17.5) g/dL Hct 39.9 L (40.1-51.0) % POC Hct 44.0 (41-55) MCV 84.9 (80.0-100.0) fL MCH 29.1 (26.0-34.0) pg MCHC 34.3 (31.0-36.0) g/dL RDW 13.5 (11.5-14.5) % Plt Count 260 (140-440) K/mcL MPV 10.3 (8.8-12.5) fL Immature Gran % (Auto) 0.8 H (0.0-0.5) % Neut % (Auto) 87.9 H (38.0-78.0) % Lymph % (Auto) 2.6 L (15.5-49.0) % [place] % (Auto) 8.5 (1.0-12.0) % Eos % (Auto) 0 (0.0-7.0) % Baso % (Auto) 0.2 (0.0-2.0) % Lymph # (Auto) 0.48 L (1.50-4.80) K/mcL [place] # (Auto) 1.59 H (0.10-0.90) K/mcL Eos # (Auto) 0 (0.00-0.70) K/mcL Baso # (Auto) 0.03 (0.00-0.30) K/mcL Immature Gran # 0.15 H (0.00-0.05) K/mcl Absolute Neutrophils 16.52 H (1.80-8.00) K/mcL POC VBG pH (7.32-7.42) POC VBG pCO2 at Temp (41-51) POC VBG pO2 (25-40) POC VBG HCO3 (24-28) POC VBG Total CO2 (25-29) POC Venous O2 Sat (40-70) POC VBG Base Excess (-2-2) VBG Lactic Acid (0.5-2) POC Sodium 131 L (133-145) POC Potassium 3.1 L (3.3-5.1) POC Chloride 96 (96-108) POC Total CO2 22.0 (22-30) POC BUN 29 H (6-20) POC Creatinine 2.5 H (0.6-1.2) POC Glucose 145 H (70-105) POC WB Ioniz Calcium 1.05 L (1.16-1.32) Urine Color Asiya Urine Appearance Turbid A (Clear) Urine pH 6.0 (5.0-9.0) Ur Specific [place] 1.011 (1.000-1.035) Urine Protein 100 A (Negative) mg/dL Urine Glucose (UA) Negative (Negative) mg/dL Urine Ketones Negative (Negative) mg/dL Urine Occult Blood 0.03 (Negative) mg/dL Urine Nitrate Negative (Negative) Urine Bilirubin Negative (Negative) mg/dL Urine Urobilinogen Negative mg/dL Ur Leukocyte Esterase 500 A (Negative) /uL Urine RBC 18 H (0-3) /hpf Urine WBC > 182 H (0-4) /hpf Ur Squamous Epith Cells 0 (0-4) /hpf Ur Transition Epith Cell < 1 (0-2) /hpf Urine Bacteria Many A (0) /hpf Urine Mucus Few A (None) /hpf Ur Culture Indicated? yes POC Troponin I (0.00-0.08) 03/03/23 03/03/23 Range/Units 15:30 17:46 WBC (4.5-11.0) K/mcL RBC (4.63-6.08) M/mcL Hgb (13.7-17.5) g/dL Hct (40.1-51.0) % POC Hct (41-55) MCV (80.0-100.0) fL MCH (26.0-34.0) pg MCHC (31.0-36.0) g/dL RDW (11.5-14.5) % Plt Count (140-440) K/mcL MPV (8.8-12.5) fL Immature Gran % (Auto) (0.0-0.5) % Neut % (Auto) (38.0-78.0) % Lymph % (Auto) (15.5-49.0) % [place] % (Auto) (1.0-12.0) % Eos % (Auto) (0.0-7.0) % Baso % (Auto) (0.0-2.0) % Lymph # (Auto) (1.50-4.80) K/mcL [place] # (Auto) (0.10-0.90) K/mcL Eos # (Auto) (0.00-0.70) K/mcL Baso # (Auto) (0.00-0.30) K/mcL Immature Gran # (0.00-0.05) K/mcl Absolute Neutrophils (1.80-8.00) K/mcL POC VBG pH 7.51 H (7.32-7.42) POC VBG pCO2 at Temp 23.0 L (41-51) POC VBG pO2 57 H (25-40) POC VBG HCO3 18.3 L (24-28) POC VBG Total CO2 19.0 L (25-29) POC Venous O2 Sat 93.0 H (40-70) POC VBG Base Excess -5.0 L (-2-2) VBG Lactic Acid 0.9 (0.5-2) POC Sodium (133-145) POC Potassium (3.3-5.1) POC Chloride (96-108) POC Total CO2 (22-30) POC BUN (6-20) POC Creatinine (0.6-1.2) POC Glucose (70-105) POC WB Ioniz Calcium (1.16-1.32) Urine Color Urine Appearance (Clear) Urine pH (5.0-9.0) Ur Specific [place] (1.000-1.035) Urine Protein (Negative) mg/dL Urine Glucose (UA) (Negative) mg/dL Urine Ketones (Negative) mg/dL Urine Occult Blood (Negative) mg/dL Urine Nitrate (Negative) Urine Bilirubin (Negative) mg/dL Urine Urobilinogen mg/dL Ur Leukocyte Esterase (Negative) /uL Urine RBC (0-3) /hpf Urine WBC (0-4) /hpf Ur Squamous Epith Cells (0-4) /hpf Ur Transition Epith Cell (0-2) /hpf Urine Bacteria (0) /hpf Urine Mucus (None) /hpf Ur Culture Indicated? POC Troponin I 0.05 (0.00-0.08) Discharge Plan Patient/Caregiver Discharge Instructions Pt seen by SILK BLOCKER/PA only: Yes Clinical Impression: Sepsis, Acute urinary retention, Acute UTI, Enlarged prostate Patient Disposition: Xfer As Inpt ([facility]) Discharge Date/Time: 01/08/23 22:07 Discharge Comment: Left floor [id number]
--- NOTE | 2023-01-08 15:28 | XRay Report ---
CLINICAL INFORMATION: Pain COMPARISON: [09/22/2016 TECHNIQUE: Portable FINDINGS: The heart size, mediastinum and pulmonary vessels are unremarkable. Mild fibrosis the right perihilar and basilar regions is similar to the 2016 exam. No new pulmonary abnormality. There are no effusions. The bones and soft tissues are within normal limits. IMPRESSION: Normal chest. Interpreted and Authenticated by: Camilo Sánchez 01/08/23
[2023-01-08 15:44] LABS: POC Calcium, Ionized 1.05 (1.16-1.32); POC Creatinine 2.5 (0.6-1.2); POC Potassium 3.1 (3.3-5.1)
[2023-01-08 16:02] LABS: Basophils # (Auto) 0.03 K/mcL (0.00-0.30); Basophils % (Auto) 0.2 % (0.0-2.0); Eosinophils # (Auto) 0 K/mcL (0.00-0.70); Eosinophils % (Auto) 0 % (0.0-7.0); Hematocrit 39.9 % (40.1-51.0); Hemoglobin 13.7 g/dL (13.7-17.5); Lymphocytes # (Auto) 0.48 K/mcL (1.50-4.80); Lymphocytes % (Auto) 2.6 % (15.5-49.0); Mean Cell Volume 84.9 fL (80.0-100.0); Mean Corpuscular HGB Conc 34.3 g/dL (31.0-36.0); Mean Platelet Volume 10.3 fL (8.8-12.5); Monocytes # (Auto) 1.59 K/mcL (0.10-0.90); Monocytes % (Auto) 8.5 % (1.0-12.0); Neutrophils % (Auto) 87.9 % (38.0-78.0); Platelet Count 260 K/mcL (140-440); Red Cell Distribution Width 13.5 % (11.5-14.5); WBC 18.8 K/mcL (4.5-11.0)
[2023-01-08 16:17] LABS: Appearance,Urine TURBID (Clear); Bacteria,Urine MANY /hpf (0); Bilirubin,Urine Negative (Negative); Color,Urine AMBER; Culture Indicated,Urine yes; Glucose,Urine (UA) Negative (Negative); Ketones,Urine Negative (Negative); Leukocyte Esterase,Urine 500 /uL (Negative); Mucus,Urine FEW /hpf; Nitrate,Urine Negative (Negative); Protein,Urine 100 mg/dL (Negative); Specific Gravity,Urine 1.011 (1.000-1.035); Urine Blood 0.03 mg/dL (Negative); Urine RBC 18 /hpf (0-3); Urine Squamous Epithelial Cell 0 /hpf (0-4); Urine Transitional Epi Cells < 1 /hpf (0-2); Urine WBC > 182 /hpf (0-4); Urobilinogen,Urine Negative
[2023-01-08] MEDS ORDERED: cefTRIAXone 2 GM in DEXTROSE 5% IN WATER 50 ML IV ONE (16:31)
--- NOTE | 2023-01-08 16:47 | Cat Scan Report ---
CLINICAL INFORMATION: Right lower quadrant pain COMPARISON: Abdomen and pelvic CT 03/09/2022 TECHNIQUE: 0.625 mm helical slices were obtained from the mid heart through the subtrochanteric regions. Following reconstruction, 2.5 mm sagittal, coronal and axial reformatted images were processed and reviewed at bone and soft tissue windows.The exam was performed using radiation dose optimization techniques including, but not limited to, automated exposure control, adjustment of the mA and/or kV according to patient size and use of iterative reconstruction technique. FINDINGS: The lung bases show mild chronic bronchitis with minimal scattered fibrosis and/or atelectasis. On the previous examination of the 6 mm pleural-based nodule lingula this has resolved. There are no effusions. The visualized heart is normal. Abdominal images show cholecystectomy changes. Hepatic and common bile ducts are normal caliber CBD is 6 mm. The noncontrasted liver shows a few small cysts but no other lesions. Both adrenal glands, spleen, pancreas and aorta are normal in size and figuration attenuation without focal lesion. There is no free air, free fluid no adenopathy Pelvic images show mild prostate enlargement 4 x 3 cm this is unchanged. There is massive distention of urinary bladder and marked bilateral hydronephrosis/hydroureter similar to previous exam. No focal lesions seen in either kidney. The stomach, small and large bowel including the appendix are all normal. Bone windows show no focal osseous abnormality. At L4-5, there is severe central canal, bilateral lateral recess and bilateral IV foraminal stenosis due to degenerative disc disease and facet hypertrophy. There is dilatation of the exiting L4 and descending L5 nerve roots. Similar, yet only moderate changes, are present L2-3 and L3-4. Slight progression from previous exam. IMPRESSION: 1. Mild prostate enlargement. Massive dilatation of the urinary bladder, both ureters and upper collecting systems is compatible chronic bladder outlet obstruction likely related to prostate enlargement or prostate mass. This shows modest progression. Patient may benefit from Rodrigues catheter placement 4. Subsegmental atelectasis both lower lobes with bronchiectasis in the segmental and subsegmental bronchi of the medial and posterior basilar segments bilaterally. 5. 3.1 cm fusiform infrarenal abdominal aortic aneurysm-new from prior exam. Suggest follow-up abdominal aortic ultrasound in one to two years for reevaluation. 6. 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 There is impingement of the exiting L4 and descending L5 nerve roots. Moderate, yet similar, degenerative change is present at L2-3 and L3-4. Please correlate with chronic or intermittent bilateral lower extremity radiculopathy and back pain Interpreted and Authenticated by: Camilo Sánchez 01/08/23
[2023-01-08] MEDS ORDERED: 0.9 % SODIUM CHLORIDE 2,120 ML IV ONE (20:06)
[2023-01-08] MEDS ORDERED: ACETAMINOPHEN 325 MG TABLET PO ONE ×2 (20:08→20:22)
--- NOTE | 2023-01-08 20:39 | Internal Med History&Physical ---
HPI History of Present Illness Patient information: Note initiated : 01/08/23 at 8:33 pm Service Date, if different from initiated Date: [] Patient: Clay Villagran a 67 y/o M admitted on for Urological. Chief Complaint: [] History of present illness: Mr. Villagran is a 67 year old M presents to ED sent in by Urologist because of shaking that confusion abdominal pain. He was seen urology for prostate enlargement. He has seen urology in the past for urinary retention. He had a Rodrigues in the past couple months ago for a while which was then removed. Patient also reports urine is darker lately. In the ED he is noted to have developed a fever and had noticeable rigors. He had significant urinary retention bladder scan for over thousand and when a Rodrigues catheter was placed and he drained 1700 cc. He was febrile at 101.6 and had a white blood cell of 19,000. He had acute kidney injury as well as hyponatremia and hypokalemia. Patient says he had an episode of nausea vomiting last night. His pain is right lower quadrant described as achy. Complains of fevers and chills and shaking. He also tachycardic in the ED 123 and tachypneic. Patient started on IV antibiotics and IV fluids in the ED. Patient is on Flomax and states he has been taking it regularly. Does not know the dose. Review of Systems: Pertinent positives as above. Denies chest pain/cough/dyspnea/diarrhea. Remaining 10 point review of system reviewed negative PHYSICAL EXAM General: Alert, Awake, No acute Distress, obese Eyes/N/T: EOMI, no scleral icterus, PERRL, dry MM Head/Neck: neck supple, full ROM, normocephalic atraumatic CV: Tacky but regular, No murmurs, normal s1/s2 Pulm: Clear b/l, no wheezing/rhonchi/rales, no respiratory distress Abd: soft, nontender, +BS x4 Ext: no clubbing/cyanosis/edema, nontender Neuro: Alert, no focal deficits, moves all extremities, CN 2-12 grossly intact, sensations intact b/l upper/lower Psychiatric: Skin: warm/dry, normal color PFSH PFSH All Active Problems Left lower quadrant pain (Chronic) Prostate mass (Chronic) Change in bowel movement (Chronic) Acute pancreatitis (Chronic) Acute urinary retention (Chronic) Acute duodenitis (Chronic) Cholelithiasis NOS (Chronic) BPH (benign prostatic hyperplasia) (Chronic) Chest pain (Chronic) Alcohol abuse (Chronic) Chronic airway obstruction (Chronic) Abdominal pain (Acute) Medical History Acute duodenitis Acute pancreatitis Acute urinary retention Alcohol abuse BPH (benign prostatic hyperplasia) Change in bowel movement Chest pain Cholelithiasis NOS Chronic airway obstruction Left lower quadrant pain Nonspecific reaction to tuberculin 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 Prostate mass Surgical History History of elbow surgery 1987 History of laparoscopic cholecystectomy 03/12/2022 Status post wrist surgery Bilateral Family History Sister Diabetes Daughter Diabetes Brother Hypertension Social History smoking status: Never smoker alcohol intake frequency: a few times a month MEDS/ALLERGIES Home Medications and Allergies Home Medications Medication Instructions Recorded Confirmed Type acetaminophen 500 mg tablet 1,000 mg PO QID PRN 01/08/23 01/08/23 History (Tylenol Extra Strength) Allergies Allergy/AdvReac Type Severity Reaction Status Date / Time No Known Drug Allergies Allergy Verified 03/09/22 00:56 EXAM Constitutional Vitals: Temp Pulse Resp BP Pulse Ox O2 Del Method 101.6 F H 88 24 H 135/92 98 Room Air 01/08/23 20:20 01/08/23 20:08 01/08/23 20:08 01/08/23 20:02 01/08/23 20:08 01/08/23 14:35 DATA Data Completed and Pending Labs: Labs from last 24 hours 01/08/23 01/08/23 01/08/23 17:46 15:30 15:28 WBC RBC Hgb Hct POC Hct 44.0 MCV MCH MCHC RDW Plt Count MPV Immature Gran % (Auto) Neut % (Auto) Lymph % (Auto) [place] % (Auto) Eos % (Auto) Baso % (Auto) Lymph # (Auto) [place] # (Auto) Eos # (Auto) Baso # (Auto) Immature Gran # Absolute Neutrophils POC VBG pH 7.51 H POC VBG pCO2 at Temp 23.0 L POC VBG pO2 57 H POC VBG HCO3 18.3 L POC VBG Total CO2 19.0 L POC Venous O2 Sat 93.0 H POC VBG Base Excess -5.0 L VBG Lactic Acid 0.9 POC Sodium 131 L POC Potassium 3.1 L POC Chloride 96 POC Total CO2 22.0 POC BUN 29 H POC Creatinine 2.5 H POC Glucose 145 H POC WB Ioniz Calcium 1.05 L Urine Color Urine Appearance Urine pH Ur Specific [place] Urine Protein Urine Glucose (UA) Urine Ketones Urine Occult Blood Urine Nitrate Urine Bilirubin Urine Urobilinogen Ur Leukocyte Esterase Urine RBC Urine WBC Ur Squamous Epith Cells Ur Transition Epith Cell Urine Bacteria Urine Mucus Ur Culture Indicated? POC Troponin I 0.05 01/08/23 01/08/23 15:20 15:15 WBC 18.8 H RBC 4.70 Hgb 13.7 Hct 39.9 L POC Hct MCV 84.9 MCH 29.1 MCHC 34.3 RDW 13.5 Plt Count 260 MPV 10.3 Immature Gran % (Auto) 0.8 H Neut % (Auto) 87.9 H Lymph % (Auto) 2.6 L [place] % (Auto) 8.5 Eos % (Auto) 0 Baso % (Auto) 0.2 Lymph # (Auto) 0.48 L [place] # (Auto) 1.59 H Eos # (Auto) 0 Baso # (Auto) 0.03 Immature Gran # 0.15 H Absolute Neutrophils 16.52 H POC VBG pH POC VBG pCO2 at Temp POC VBG pO2 POC VBG HCO3 POC VBG Total CO2 POC Venous O2 Sat POC VBG Base Excess VBG Lactic Acid POC Sodium POC Potassium POC Chloride POC Total CO2 POC BUN POC Creatinine POC Glucose POC WB Ioniz Calcium Urine Color Asiya Urine Appearance Turbid A Urine pH 6.0 Ur Specific [place] 1.011 Urine Protein 100 A Urine Glucose (UA) Negative Urine Ketones Negative Urine Occult Blood 0.03 Urine Nitrate Negative Urine Bilirubin Negative Urine Urobilinogen Negative Ur Leukocyte Esterase 500 A Urine RBC 18 H Urine WBC > 182 H Ur Squamous Epith Cells 0 Ur Transition Epith Cell < 1 Urine Bacteria Many A Urine Mucus Few A Ur Culture Indicated? yes POC Troponin I A/P Narrative A/P Narrative: A: *UTI complicated: *Sepsis: /2 above *UR from [facility]: 2 BPH *BPH: has seen urology in past *SIRISHA on CKD II: 2/2 above *Hyponatremia/hypokalemia: *Obesity: bmi 31, Lifestyle modifications P: -IV abx, pending BC/UC -IVF, monitor UOP, renal fxn -Rodrigues in place, keep in until seen by urology -flomax -Follow-up electrolytes trend and replace as needed - -Avoid nephrotoxic meds -Home medication reconciliation -PT/OT -CM for placement needs -f/u with urology -ppx: lovenox Time Spent With Patient Time: Total time spent is greater than 50% in coordination of care (as documented) at patient's floor/unit and/or counseling patient: Initial: Total time with patient: 75 - 90 minutes
[2023-01-08] MEDS ORDERED: ONDANSETRON 4 MG/2 ML VIAL IV PRN (21:39)
[2023-01-08] MEDS ORDERED: POTASSIUM CHLORIDE 40 MEQ in DEXTROSE 5% IN WATER 500 ML IV PRN (21:39)
[2023-01-08] MEDS ORDERED: IPRATROPIUM/ALBUTEROL 3 ML AMPUL.NEB NEB PRN (21:39)
[2023-01-08] MEDS ORDERED: POTASSIUM CHLORIDE 20 MEQ TABLET PO ONE (21:39)
[2023-01-08] MEDS ORDERED: POTASSIUM CHLORIDE 20 MEQ TABLET PO PRN ×2 (21:39)
[2023-01-08] MEDS ORDERED: cefTRIAXone 1 GM in DEXTROSE 5% IN WATER 50 ML IV SCH (21:39)
[2023-01-08] MEDS ORDERED: 0.9 % SODIUM CHLORIDE 1,000 ML IV SCH (21:39)
[2023-01-08] MEDS ORDERED: HYDROcodone/APAP 5/325MG TABLET PO PRN (21:39)
[2023-01-08] MEDS ORDERED: SENNOSIDES 1 TABLET PO PRN (21:39)
[2023-01-08] MEDS ORDERED: MAGNESIUM SULFATE 2 GM/50 ML BAG IV PRN (21:39)
[2023-01-08] MEDS ORDERED: POLYETHYLENE GLYCOL 3350 17 GM PACKET PO PRN (21:39)
[2023-01-08] MEDS ORDERED: ACETAMINOPHEN 1,000 MG/100 ML BAG IV ONE (21:54)
[2023-01-08] MEDS: 0.9 % SODIUM CHLORIDE 10 ML SYRINGE IV SCH (23:05)
[2023-01-08] MEDS: TAMSULOSIN 0.4 MG CAPSULE PO SCH (23:05)
[2023-01-08] MEDS: DOCUSATE SODIUM 100 MG CAPSULE PO SCH (23:05)
[2023-01-09] MEDS: ACETAMINOPHEN 325 MG TABLET PO PRN ×2 (02:51→19:21)
[2023-01-09] MEDS: 0.9 % SODIUM CHLORIDE 10 ML SYRINGE IV SCH ×3 (05:55→20:41)
[2023-01-09 06:32] LABS: Basophils # (Auto) 0.03 K/mcL (0.00-0.30); Basophils % (Auto) 0.1 % (0.0-2.0); Eosinophils # (Auto) 0 K/mcL (0.00-0.70); Eosinophils % (Auto) 0 % (0.0-7.0); Hematocrit 33.8 % (40.1-51.0); Hemoglobin 11.6 g/dL (13.7-17.5); Lymphocytes # (Auto) 0.64 K/mcL (1.50-4.80); Lymphocytes % (Auto) 3.1 % (15.5-49.0); Mean Cell Volume 83.9 fL (80.0-100.0); Mean Corpuscular HGB Conc 34.3 g/dL (31.0-36.0); Mean Platelet Volume 10.1 fL (8.8-12.5); Monocytes # (Auto) 1.67 K/mcL (0.10-0.90); Monocytes % (Auto) 8.1 % (1.0-12.0); Neutrophils % (Auto) 87.7 % (38.0-78.0); Platelet Count 256 K/mcL (140-440); RBC 4.03 M/mcL (4.63-6.08); Red Cell Distribution Width 13.7 % (11.5-14.5); WBC 20.7 K/mcL (4.5-11.0)
[2023-01-09 07:10] LABS: ALT/SGPT 44 U/L (<40); AST/SGOT 42 U/L (<40); Albumin 2.5 gm/dL (3.2-5.2); Albumin/Globulin Ratio 0.7 (1.0-2.3); Alkaline Phosphatase 132 U/L (39-117); Bilirubin,Direct 0.6 mg/dL (<0.3); Bilirubin,Total 0.9 mg/dL (0.1-1.0); Blood Urea Nitrogen 24 mg/dL (8-23); Calcium 7.5 mg/dL (8.6-10.4); Carbon Dioxide 18 mmol/L (22-30); Chloride 98 mmol/L (96-108); Globulin 3.6 gm/dL (2.2-3.7); Glomerular Filtration Rate 40; Glucose 111 mg/dL (70-105); Lactate Dehydrogenase 210 U/L (135-225); Phosphorous 2.2 mg/dL (2.5-4.5); Triglycerides 138 mg/dL (<150); Uric Acid 6.5 mg/dL (2.5-8.0)
[2023-01-09] MEDS: DOCUSATE SODIUM 100 MG CAPSULE PO SCH ×2 (08:06→20:41)
[2023-01-09] MEDS: ENOXAPARIN 40 MG/0.4 ML SYRINGE SQ SCH (08:06)
--- NOTE | 2023-01-09 08:26 | Internal Med Progress Note ---
SUBJECTIVE Subjective Patient information: Note initiated : 01/09/23 at 8:20 am Service Date, if different from initiated Date: [] Patient: Clay Villagran a 67 y/o M admitted on 01/08/23 for Urological. Chief Complaint: [] Interval history: History of present illness: Mr. Villagran is a 67 year old M presents to ED sent in by Urologist because of shaking that confusion abdominal pain. He was seen urology for prostate enlargement. He has seen urology in the past for urinary retention. He had a Rodrigues in the past couple months ago for a while which was then removed. Patient also reports urine is darker lately. In the ED he is noted to have developed a fever and had noticeable rigors. He had significant urinary retention bladder scan for over thousand and when a Rodrigues catheter was placed and he drained 1700 cc. He was febrile at 101.6 and had a white blood cell of 19,000. He had acute kidney injury as well as hyponatremia and hypokalemia. Patient says he had an episode of nausea vomiting last night. His pain is right lower quadrant described as achy. Complains of fevers and chills and shaking. He also tachycardic in the ED 123 and tachypneic. Patient started on IV antibiotics and IV fluids in the ED. Patient is on Flomax and states he has been taking it regularly. Does not know the dose. 3/4 Patient states poor sleep last night. Complains of fevers and chills. Leukocytosis worsened. Anemia. Hyponatremia, acidosis creatinine 1.7. Low phosphorus. Transaminitis. Review of Systems: denies headache/nausea/vomiting/chest or abdominal pain/cough/dyspnea/diarrhea. Otherwise see above. PHYSICAL EXAM General: Alert, Awake, No acute Distress, obese Eyes/N/T: EOMI, no scleral icterus, Head/Neck: neck supple, full ROM, CV: RRR, No murmurs, Pulm: Clear b/l, no wheezing/rhonchi/rales, no respiratory distress Abd: soft, nontender, +BS x4 Ext: no clubbing/cyanosis/edema, nontender Neuro: Alert, no focal deficits, moves all extremities, sensations intact b/l upper/lower Psychiatric: Skin: warm/dry, normal color Constitutional Vitals: Vital Signs Temp Pulse Resp BP Pulse Ox O2 Del Method 98.1 F 82 16 113/75 97 Room Air 01/09/23 08:00 01/09/23 08:00 01/09/23 08:00 01/09/23 08:00 01/09/23 08:00 01/09/23 08:00 Period Temp Pulse Resp BP Sys/Mohan Pulse Ox O2 Del Method O2 Flow Rate Last 24 Hr 98.1 F-101.6 F 82-133 12-26 109-156/63-98 94-100 Room Air-Room Air Intake and Output 01/08/23 01/09/23 01/09/23 19:59 03:59 11:59 Intake Total 50 2620 Output Total 3000 1125 Balance -2950 1495 Weight 92.986 kg 95.98 kg Intake & Output: Intake & Output 01/08/23 01/09/23 01/09/23 19:59 03:59 11:59 Intake Total 50 2620 Output Total 3000 1125 Balance -2950 1495 Weight 92.986 kg 95.98 kg Intake: IV 50 2120 Sodium Chloride 0.9% 2,120 ml @ 2120 4240 mls/hr IV .Q30M [facility] Rx#: [id number] Rocephin 2 gm In Dextrose 5% in 50 Water 50 ml @ 100 mls/hr IV ONCE ONE Rx#:[id number] Oral 500 Output: Urine Catheter Amount 2000 1125 Void Amount 1000 Urethral 1000 Other: Urine Appearance Cloudy Urethral Cloudy Cloudy Urine Color Yellow Urethral Brown Dark Asiya Stool Size Small Stool Color Brown Stool Consistency Loose # Bowel Movements 1 OBJ DATA Labs 01/09/23 05:18 01/09/23 05:18 Labs: Abnormal Lab Results 01/09/23 01/09/23 01/08/23 05:18 05:18 17:46 WBC 20.7 H RBC 4.03 L Hgb 11.6 L Hct 33.8 L Immature Gran % (Auto) 1.0 H Neut % (Auto) 87.7 H Lymph % (Auto) 3.1 L Lymph # (Auto) 0.64 L [place] # (Auto) 1.67 H Immature Gran # 0.21 H Absolute Neutrophils 18.18 H POC VBG pH 7.51 H POC VBG pCO2 at Temp 23.0 L POC VBG pO2 57 H POC VBG HCO3 18.3 L POC VBG Total CO2 19.0 L POC Venous O2 Sat 93.0 H POC VBG Base Excess -5.0 L POC Sodium Sodium 128 L POC Potassium Carbon Dioxide 18 L POC BUN BUN 24 H Creatinine 1.7 H POC Creatinine Glucose 111 H POC Glucose Calcium 7.5 L POC WB Ioniz Calcium Phosphorus 2.2 L Direct Bilirubin 0.6 H AST 42 H ALT 44 H Alkaline Phosphatase 132 H Albumin 2.5 L Albumin/Globulin Ratio 0.7 L Urine Appearance Urine Protein Ur Leukocyte Esterase Urine RBC Urine WBC Urine Bacteria Urine Mucus 01/08/23 01/08/23 01/08/23 15:28 15:20 15:15 WBC 18.8 H RBC Hgb Hct 39.9 L Immature Gran % (Auto) 0.8 H Neut % (Auto) 87.9 H Lymph % (Auto) 2.6 L Lymph # (Auto) 0.48 L [place] # (Auto) 1.59 H Immature Gran # 0.15 H Absolute Neutrophils 16.52 H POC VBG pH POC VBG pCO2 at Temp POC VBG pO2 POC VBG HCO3 POC VBG Total CO2 POC Venous O2 Sat POC VBG Base Excess POC Sodium 131 L Sodium POC Potassium 3.1 L Carbon Dioxide POC BUN 29 H BUN Creatinine POC Creatinine 2.5 H Glucose POC Glucose 145 H Calcium POC WB Ioniz Calcium 1.05 L Phosphorus Direct Bilirubin AST ALT Alkaline Phosphatase Albumin Albumin/Globulin Ratio Urine Appearance Turbid A Urine Protein 100 A Ur Leukocyte Esterase 500 A Urine RBC 18 H Urine WBC > 182 H Urine Bacteria Many A Urine Mucus Few A Meds: Medications Acetaminophen (Acetaminophen 325 Mg Tablet) 650 mg PO Q6HP PRN; Protocol PRN Reason: Per Pain Protocol/Fever > 101 Last Admin: 01/09/23 02:51 Dose: 650 mg Hydrocodone Bitart/Acetaminophen (Hydrocodone/Apap 5/325mg Tablet) 1 tab PO Q4HP PRN PRN Reason: PAIN LEVEL 3-6 Albuterol/Ipratropium (Ipratropium/Albuterol 3 Ml Ampul.Neb) 3 ml NEB Q4HP PRN PRN Reason: Shortness Of Breath Docusate Sodium (Docusate Sodium 100 Mg Capsule) 100 mg PO BID [facility] Last Admin: 01/09/23 08:06 Dose: 100 mg Enoxaparin Sodium (Enoxaparin 40 Mg/0.4 Ml Syringe) 40 mg SQ DAILY [facility] Last Admin: 01/09/23 08:06 Dose: 40 mg Ceftriaxone Sodium 1 gm/ (Dextrose) 50 mls @ 100 mls/hr IV Q24H [facility]; Protocol Last Admin: 01/08/23 22:26 Dose: Not Given Potassium Chloride 40 meq/ (Dextrose) 520 mls @ 130 mls/hr IV UD PRN PRN Reason: Potassium < 3 Magnesium Sulfate (Magnesium Sulfate) 2 gm in 50 mls @ 50 mls/hr IV UD PRN PRN Reason: Magnesium </= 1.6 Sodium Chloride (Sodium Chloride 0.9%) 1,000 mls @ 75 mls/hr IV .[id number] [facility] Stop: 01/09/23 10:58 Last Admin: 01/08/23 23:05 Dose: 75 mls/hr Ondansetron HCl (Ondansetron 4 Mg/2 Ml Vial) 4 mg IV Q4HP PRN PRN Reason: Nausea And Vomiting Polyethylene Glycol (Polyethylene Glycol 3350 17 Gm Packet) 17 gm PO DAILYP PRN PRN Reason: Constipation Potassium Chloride (Potassium Chloride 20 Meq Tablet) 40 meq PO UD PRN PRN Reason: Potssium is 3-3.5 Potassium Chloride (Potassium Chloride 20 Meq Tablet) 40 meq PO UD PRN PRN Reason: Potassium < 3 Senna (Sennosides 1 Tablet) 2 tab PO DAILYP PRN PRN Reason: Constipation Sodium Chloride (0.9 % Sodium Chloride 10 Ml Syringe) 10 ml IV Q8 [facility] Last Admin: 01/09/23 05:55 Dose: Not Given Tamsulosin HCl (Tamsulosin 0.4 Mg Capsule) 0.8 mg PO HS [facility] Last Admin: 01/08/23 23:05 Dose: 0.8 mg A/P Narrative A/P Narrative: A: *UTI (GNB)complicated: *Sepsis(tachycardia/tachypnea/fever/leukocytosis): 2/2 above -Leukocytosis worsened *UR from [place]: 2/2 BPH -post-obstructive diuresis *BPH: has seen urology in past *SIRISHA on CKD II: 2/2 above *Anemia: *Hyponatremia/hypokalemia/hypophosphatemia: *Metabolic acidosis: *Transaminitis w/fatty liver: *Obesity: bmi 31, Lifestyle modifications P: -IV abx, pending BC/UC -IVF for post-ob diuresis -monitor UOP, renal fxn -Rodrigues in place, keep in until seen by urology -flomax -Follow-up electrolytes trend and replace as needed -Avoid nephrotoxic meds -PT/OT -CM for placement needs -f/u with urology -ppx: lovenox Time Spent With Patient Time: Total time spent is greater than 50% in coordination of care (as documented) at patient's floor/unit and/or counseling patient: Subsequent: Total time with patient: 50 - 65 Minutes QUALITY Stroke Symptom Onset Unknown: No VTE Deep Vein Thrombosis/Pulmonary Embolism Present on Admission: No
[2023-01-09] MEDS: 0.9 % SODIUM CHLORIDE 1,000 ML IV SCH ×2 (09:40→19:21)
[2023-01-09] MEDS ORDERED: cefTRIAXone 1 GM VIAL IV SCH (12:00)
[2023-01-09] MEDS: TAMSULOSIN 0.4 MG CAPSULE PO SCH (20:41)
[2023-01-10] MEDS: ACETAMINOPHEN 325 MG TABLET PO PRN ×3 (01:36→17:14)
[2023-01-10] MEDS: 0.9 % SODIUM CHLORIDE 10 ML SYRINGE IV SCH ×4 (05:16→20:27)
[2023-01-10 07:08] LABS: Basophils # (Auto) 0.03 K/mcL (0.00-0.30); Basophils % (Auto) 0.2 % (0.0-2.0); Eosinophils # (Auto) 0.02 K/mcL (0.00-0.70); Eosinophils % (Auto) 0.1 % (0.0-7.0); Hemoglobin 11.3 g/dL (13.7-17.5); Lymphocytes # (Auto) 1.07 K/mcL (1.50-4.80); Lymphocytes % (Auto) 6.1 % (15.5-49.0); Mean Cell Volume 85.1 fL (80.0-100.0); Mean Corpuscular HGB Conc 34.2 g/dL (31.0-36.0); Mean Platelet Volume 10.1 fL (8.8-12.5); Monocytes # (Auto) 1.41 K/mcL (0.10-0.90); Neutrophils % (Auto) 84.1 % (38.0-78.0); Platelet Count 284 K/mcL (140-440); RBC 3.88 M/mcL (4.63-6.08); Red Cell Distribution Width 14.2 % (11.5-14.5); WBC 17.6 K/mcL (4.5-11.0)
[2023-01-10 07:48] LABS: ALT/SGPT 37 U/L (<40); AST/SGOT 39 U/L (<40); Albumin 2.5 gm/dL (3.2-5.2); Albumin/Globulin Ratio 0.8 (1.0-2.3); Alkaline Phosphatase 189 U/L (39-117); Bilirubin,Direct 0.5 mg/dL (<0.3); Bilirubin,Total 0.6 mg/dL (0.1-1.0); Blood Urea Nitrogen 17 mg/dL (8-23); Calcium 8.5 mg/dL (8.6-10.4); Carbon Dioxide 20 mmol/L (22-30); Chloride 101 mmol/L (96-108); Globulin 3.3 gm/dL (2.2-3.7); Glomerular Filtration Rate 51; Glucose 113 mg/dL (70-105); Lactate Dehydrogenase 235 U/L (135-225); Phosphorous 2.5 mg/dL (2.5-4.5); Triglycerides 130 mg/dL (<150); Uric Acid 4.9 mg/dL (2.5-8.0)
[2023-01-10] MEDS: ENOXAPARIN 40 MG/0.4 ML SYRINGE SQ SCH (08:35)
[2023-01-10] MEDS: DOCUSATE SODIUM 100 MG CAPSULE PO SCH ×2 (08:35→20:27)
[2023-01-10] MEDS ORDERED: cefTRIAXone 1 GM VIAL IV SCH (09:03)
--- NOTE | 2023-01-10 09:03 | Internal Med Progress Note ---
SUBJECTIVE Subjective Patient information: Note initiated : 01/10/23 at 8:59 am Service Date, if different from initiated Date: [] Patient: Clay Villagran a 67 y/o M admitted on 01/08/23 for Urological. Chief Complaint: [] Interval history: History of present illness: Mr. Villagran is a 67 year old M presents to ED sent in by Urologist because of shaking that confusion abdominal pain. He was seen urology for prostate enlargement. He has seen urology in the past for urinary retention. He had a Rodrigues in the past couple months ago for a while which was then removed. Patient also reports urine is darker lately. In the ED he is noted to have developed a fever and had noticeable rigors. He had significant urinary retention bladder scan for over thousand and when a Rodrigues catheter was placed and he drained 1700 cc. He was febrile at 101.6 and had a white blood cell of 19,000. He had acute kidney injury as well as hyponatremia and hypokalemia. Patient says he had an episode of nausea vomiting last night. His pain is right lower quadrant described as achy. Complains of fevers and chills and shaking. He also tachycardic in the ED 123 and tachypneic. Patient started on IV antibiotics and IV fluids in the ED. Patient is on Flomax and states he has been taking it regularly. Does not know the dose. 3/4 Patient states poor sleep last night. Complains of fevers and chills. Leukocytosis worsened. Anemia. Hyponatremia, acidosis creatinine 1.7. Low phosphorus. Transaminitis. 3/5 Patient feeling still quite weak. Leukocytosis still quite elevated but mildly improved from yesterday. He had fevers overnight up to 102.9. Hyponatremia noted although little better than previous day. Hypokalemia noted. Acidosis me tabolic. Renal function slowly improving. Urine culture with gram-negative bacillus. Review of Systems: denies headache/nausea/vomiting/chest or abdominal pain/cough/dyspnea/diarrhea. Otherwise see above. PHYSICAL EXAM General: Alert, Awake, No acute Distress, obese Eyes/N/T: EOMI, no scleral icterus, Head/Neck: neck supple, full ROM, CV: RRR, No murmurs, Pulm: Clear b/l, no wheezing/rhonchi/rales, no respiratory distress Abd: soft, nontender, +BS x4 Ext: no clubbing/cyanosis/edema, nontender Neuro: Alert, no focal deficits, moves all extremities, sensations intact b/l upper/lower Psychiatric: Skin: warm/dry, normal color Constitutional Vitals: Vital Signs Temp Pulse Resp BP Pulse Ox O2 Del Method 98.6 F 88 16 138/95 98 Room Air 01/10/23 08:00 01/10/23 08:00 01/10/23 08:00 01/10/23 08:00 01/10/23 08:00 01/10/23 08:00 Period Temp Pulse Resp BP Sys/Mohan Pulse Ox O2 Del Method O2 Flow Rate Last 24 Hr 98.6 F-102.9 F 88-106 16-24 113-145/75-95 96-100 Room Air-Room Air Intake and Output 01/09/23 01/10/23 01/10/23 19:59 03:59 11:59 Intake Total 3248 800 1000 Output Total 1800 2325 Balance 1448 -1525 1000 Weight 99.019 kg Intake & Output: Intake & Output 01/09/23 01/10/23 01/10/23 19:59 03:59 11:59 Intake Total 3248 800 1000 Output Total 1800 2325 Balance 1448 -1525 1000 Weight 99.019 kg Intake: IV 1967 1000 Sodium Chloride 0.9% 1,000 ml @ 1967 1000 100 mls/hr IV .Q10H [facility] Rx#: [id number] Oral 480 800 GI Tube Flush 800 Output: Urine Catheter Amount 1800 2325 Other: Meal Nourishment/Supplement Percent of Meal Consumed 100% Feeding Ability Independent Urine Appearance Clear Clear Urethral Clear Urine Color Dark Yellow Dark Yellow Urethral Dark Yellow Urine Odor Strong OBJ DATA Labs 01/10/23 05:21 01/10/23 05:21 Labs: Abnormal Lab Results 01/10/23 01/10/23 01/09/23 05:21 05:21 05:18 WBC 17.6 H RBC 3.88 L Hgb 11.3 L Hct 33.0 L Immature Gran % (Auto) 1.5 H Neut % (Auto) 84.1 H Lymph % (Auto) 6.1 L Lymph # (Auto) 1.07 L [place] # (Auto) 1.41 H Immature Gran # 0.27 H Absolute Neutrophils 14.78 H POC VBG pH POC VBG pCO2 at Temp POC VBG pO2 POC VBG HCO3 POC VBG Total CO2 POC Venous O2 Sat POC VBG Base Excess POC Sodium Sodium 132 L 128 L POC Potassium Potassium 3.1 L Carbon Dioxide 20 L 18 L POC BUN BUN 24 H Creatinine 1.4 H 1.7 H POC Creatinine Glucose 113 H 111 H POC Glucose Calcium 8.5 L 7.5 L POC WB Ioniz Calcium Phosphorus 2.2 L Direct Bilirubin 0.5 H 0.6 H AST 42 H ALT 44 H Alkaline Phosphatase 189 H 132 H Lactate Dehydrogenase 235 H Total Protein 5.8 L Albumin 2.5 L 2.5 L Albumin/Globulin Ratio 0.8 L 0.7 L Urine Appearance Urine Protein Ur Leukocyte Esterase Urine RBC Urine WBC Urine Bacteria Urine Mucus 01/09/23 01/08/23 01/08/23 05:18 17:46 15:28 WBC 20.7 H RBC 4.03 L Hgb 11.6 L Hct 33.8 L Immature Gran % (Auto) 1.0 H Neut % (Auto) 87.7 H Lymph % (Auto) 3.1 L Lymph # (Auto) 0.64 L [place] # (Auto) 1.67 H Immature Gran # 0.21 H Absolute Neutrophils 18.18 H POC VBG pH 7.51 H POC VBG pCO2 at Temp 23.0 L POC VBG pO2 57 H POC VBG HCO3 18.3 L POC VBG Total CO2 19.0 L POC Venous O2 Sat 93.0 H POC VBG Base Excess -5.0 L POC Sodium 131 L Sodium POC Potassium 3.1 L Potassium Carbon Dioxide POC BUN 29 H BUN Creatinine POC Creatinine 2.5 H Glucose POC Glucose 145 H Calcium POC WB Ioniz Calcium 1.05 L Phosphorus Direct Bilirubin AST ALT Alkaline Phosphatase Lactate Dehydrogenase Total Protein Albumin Albumin/Globulin Ratio Urine Appearance Urine Protein Ur Leukocyte Esterase Urine RBC Urine WBC Urine Bacteria Urine Mucus 01/08/23 01/08/23 15:20 15:15 WBC 18.8 H RBC Hgb Hct 39.9 L Immature Gran % (Auto) 0.8 H Neut % (Auto) 87.9 H Lymph % (Auto) 2.6 L Lymph # (Auto) 0.48 L [place] # (Auto) 1.59 H Immature Gran # 0.15 H Absolute Neutrophils 16.52 H POC VBG pH POC VBG pCO2 at Temp POC VBG pO2 POC VBG HCO3 POC VBG Total CO2 POC Venous O2 Sat POC VBG Base Excess POC Sodium Sodium POC Potassium Potassium Carbon Dioxide POC BUN BUN Creatinine POC Creatinine Glucose POC Glucose Calcium POC WB Ioniz Calcium Phosphorus Direct Bilirubin AST ALT Alkaline Phosphatase Lactate Dehydrogenase Total Protein Albumin Albumin/Globulin Ratio Urine Appearance Turbid A Urine Protein 100 A Ur Leukocyte Esterase 500 A Urine RBC 18 H Urine WBC > 182 H Urine Bacteria Many A Urine Mucus Few A Meds: Medications Acetaminophen (Acetaminophen 325 Mg Tablet) 650 mg PO Q6HP PRN; Protocol PRN Reason: Per Pain Protocol/Fever > 101 Last Admin: 01/10/23 08:33 Dose: 650 mg Hydrocodone Bitart/Acetaminophen (Hydrocodone/Apap 5/325mg Tablet) 1 tab PO Q4HP PRN PRN Reason: PAIN LEVEL 3-6 Albuterol/Ipratropium (Ipratropium/Albuterol 3 Ml Ampul.Neb) 3 ml NEB Q4HP PRN PRN Reason: Shortness Of Breath Ceftriaxone Sodium (Ceftriaxone 1 Gm Vial) 1 gm IV Q24H [facility] Last Admin: 01/09/23 12:17 Dose: 1 gm Docusate Sodium (Docusate Sodium 100 Mg Capsule) 100 mg PO BID [facility] Last Admin: 01/10/23 08:35 Dose: Not Given Enoxaparin Sodium (Enoxaparin 40 Mg/0.4 Ml Syringe) 40 mg SQ DAILY [facility] Last Admin: 01/10/23 08:35 Dose: 40 mg Potassium Chloride 40 meq/ (Dextrose) 520 mls @ 130 mls/hr IV UD PRN PRN Reason: Potassium < 3 Magnesium Sulfate (Magnesium Sulfate) 2 gm in 50 mls @ 50 mls/hr IV UD PRN PRN Reason: Magnesium </= 1.6 Ondansetron HCl (Ondansetron 4 Mg/2 Ml Vial) 4 mg IV Q4HP PRN PRN Reason: Nausea And Vomiting Last Admin: 01/09/23 12:35 Dose: 4 mg Polyethylene Glycol (Polyethylene Glycol 3350 17 Gm Packet) 17 gm PO DAILYP PRN PRN Reason: Constipation Potassium Chloride (Potassium Chloride 20 Meq Tablet) 40 meq PO UD PRN PRN Reason: Potssium is 3-3.5 Potassium Chloride (Potassium Chloride 20 Meq Tablet) 40 meq PO UD PRN PRN Reason: Potassium < 3 Senna (Sennosides 1 Tablet) 2 tab PO DAILYP PRN PRN Reason: Constipation Sodium Chloride (0.9 % Sodium Chloride 10 Ml Syringe) 10 ml IV Q8 [facility] Last Admin: 01/10/23 05:30 Dose: 10 ml Tamsulosin HCl (Tamsulosin 0.4 Mg Capsule) 0.8 mg PO HS [facility] Last Admin: 01/09/23 20:41 Dose: 0.8 mg A/P Narrative A/P Narrative: A: *UTI (Klebsiella pna) complicated: *Sepsis(tachycardia/tachypnea/fever/leukocytosis): 2/2 above -Leukocytosis -febrile o/n *UR from [place]: 2/2 BPH -post-obstructive diuresis *BPH: has seen urology in past *SIRISHA on CKD II: 2/2 above, improving *Anemia: *Hyponatremia/hypokalemia/hypophosphatemia: *Metabolic acidosis: *Transaminitis w/fatty liver: better *Obesity: bmi 31, Lifestyle modifications P: -Rocephin, pending BC/UC -IVF for post-obstructive diuresis -monitor UOP, renal fxn -Rodrigues in place, keep in until seen by urology -flomax -Follow-up electrolytes trend and replace as needed -Avoid nephrotoxic meds -PT/OT -CM for placement needs -f/u with urology outpt -ppx: lovenox Time Spent With Patient Time: Total time spent is greater than 50% in coordination of care (as documented) at patient's floor/unit and/or counseling patient: Subsequent: Total time with patient: 50 - 65 Minutes QUALITY Stroke Symptom Onset Unknown: No VTE Deep Vein Thrombosis/Pulmonary Embolism Present on Admission: No
[2023-01-10] MEDS: cefTRIAXone 2 GM in DEXTROSE 5% IN WATER 50 ML IV SCH (09:54)
[2023-01-10] MEDS ORDERED: POTASSIUM CHLORIDE 20 MEQ TABLET PO SCH (10:16)
--- NOTE | 2023-01-10 12:13 | Discharge Summary ---
Discharge Provider Provider IMPORTANT FOLLOW-UP INFORMATION FOR PCP: Patient information: Note initiated : 01/10/23 at 12:12 pm Service Date, if different from initiated Date: [] Patient: Clay Villagran 67 y/o M admitted on 01/08/23 for Urological. Chief Complaint: [] Date of admission: 01/08/23 22:07 Primary care physician: Joel Medina Consults: 01/08/23 Consult to Physician [CONS] Stat Comment: Consulting Provider: Eder Lion Reason For Exam: Physician to Consult COURSE Hospital Course Hospital course: History of present illness: Mr. Villagran is a 67 year old M presents to ED sent in by Urologist because of shaking that confusion abdominal pain. He was seen urology for prostate enlargement. He has seen urology in the past for urinary retention. He had a Mariano in the past couple months ago for a while which was then removed. Patient also reports urine is darker lately. In the ED he is noted to have developed a fever and had noticeable rigors. He had significant urinary retention bladder scan for over thousand and when a Mariano catheter was placed and he drained 1700 cc. He was febrile at 101.6 and had a white blood cell of 19,000. He had acute kidney injury as well as hyponatremia and hypokalemia. Patient says he had an episode of nausea vomiting last night. His pain is right lower quadrant described as achy. Complains of fevers and chills and shaking. He also tachycardic in the ED 123 and tachypneic. Patient started on IV antibiotics and IV fluids in the ED. Patient is on Flomax and states he has been taking it regularly. Does not know the dose. 3/4 Patient states poor sleep last night. Complains of fevers and chills. Leukocytosis worsened. Anemia. Hyponatremia, acidosis creatinine 1.7. Low phosphorus. Transaminitis. 3/5 Patient feeling still quite weak. Leukocytosis still quite elevated but mildly improved from yesterday. He had fevers overnight up to 102.9. Hyponatremia noted although little better than previous day. Hypokalemia noted. Acidosis metabolic. Renal function slowly improving. Urine culture with gram-negative bacillus. A: *UTI (Klebsiella pna) complicated: *Sepsis: *UR from [facility]: 2/2 BPH *BPH: has seen urology in past *SIRISHA on CKD II: 2/2 above, improving *Anemia: *Hyponatremia/hypokalemia/hypophosphatemia: *Metabolic acidosis: *Transaminitis w/fatty liver: better *Obesity: bmi 31, Lifestyle modifications P: -abx -amriano in place, keep in until seen by urology -flomax -f/u with urology outpt Discharge diagnosis: Complicated UTI sepsis urinary retention with bladder outlet obstruction Secondary discharge diagnosis: History of BPH acute kidney injury on chronic kidney disease anemia electrolyte disturbance metabolic acidosis fatty liver transaminitis obesity Time Spent with Patient Time attestation: Total time spent providing and/or coordinating discharge services: Time spent: Greater than 30 minutes EXAM Constitutional Vitals: Temp Pulse Resp BP Pulse Ox O2 Del Method 98.8 F 82 16 103/74 97 Room Air 01/10/23 11:36 01/10/23 11:36 01/10/23 11:36 01/10/23 11:36 01/10/23 11:36 01/10/23 11:36 Discharge Data Data Completed and Pending Labs on day of discharge: Labs from last 24 hours 01/10/23 01/10/23 05:21 05:21 WBC 17.6 H RBC 3.88 L Hgb 11.3 L Hct 33.0 L MCV 85.1 MCH 29.1 MCHC 34.2 RDW 14.2 Plt Count 284 MPV 10.1 Immature Gran % (Auto) 1.5 H Neut % (Auto) 84.1 H Lymph % (Auto) 6.1 L [place] % (Auto) 8.0 Eos % (Auto) 0.1 Baso % (Auto) 0.2 Lymph # (Auto) 1.07 L [place] # (Auto) 1.41 H Eos # (Auto) 0.02 Baso # (Auto) 0.03 Immature Gran # 0.27 H Absolute Neutrophils 14.78 H Sodium 132 L Potassium 3.1 L Chloride 101 Carbon Dioxide 20 L Anion Gap 11.0 BUN 17 Creatinine 1.4 H GFR Calculation 51 Glucose 113 H Uric Acid 4.9 Calcium 8.5 L Phosphorus 2.5 Magnesium 2.1 Total Bilirubin 0.6 Direct Bilirubin 0.5 H GGT 48 AST 39 ALT 37 Alkaline Phosphatase 189 H Lactate Dehydrogenase 235 H Total Protein 5.8 L Albumin 2.5 L Globulin 3.3 Albumin/Globulin Ratio 0.8 L Triglycerides 130 Preliminary micro results at discharge 01/08/23 16:45 Blood Culture - Preliminary Blood 01/08/23 16:40 Blood Culture - Preliminary Blood Discharge Plan Patient/Caregiver Discharge Instructions Activity: increase activity as tolerated Diet: Regular Diet Activity Restrictions/Additional Instructions: Referral to see urology and 3 to 7 days for bladder outlet obstruction and history of BPH Prescriptions: New tamsulosin [Flomax] 0.4 mg capsule 0.4 mg PO QHS Qty: 30 0RF Continued acetaminophen [Tylenol Extra Strength] 500 mg tablet 1,000 mg PO QID PRN (Reason: Back Pain) Follow Up Plan Follow up with: Joel Medina MD [Primary Care Provider] - Moshe Beach MD [Physician] - Prognosis: Fair Rehab Potential: Fair I certify that the patient requires SNF services: Yes Overall status at discharge: patient is progressing back to baseline QUALITY VTE Deep Vein Thrombosis/Pulmonary Embolism Present on Admission: No
[2023-01-10] MEDS: TAMSULOSIN 0.4 MG CAPSULE PO SCH (20:27)
--- NOTE | 2023-01-10 20:33 | EKG ---
[facility] Test Date: 2023-01-08 Pat Name: Clay Villagran Department: ED Room: Gender: Male Family Member Caretaker: SN : [id number] Requested By: Lacy Serna Order Number: [id number] Reading MD: Olegario Li Measurements Intervals [place] Rate: 120 P: 71 MT: 176 QRS: 74 QRSD: 85 T: 29 QT: 307 QTc: 434 Interpretive Statements Sinus tachycardia Electronically Signed On 01-10-2023 20:33:31 PST by Olegario Li /store/[email or web address]/[id number]
[2023-01-11 07:39] LABS: Basophils # (Auto) 0.03 K/mcL (0.00-0.30); Basophils % (Auto) 0.2 % (0.0-2.0); Eosinophils # (Auto) 0.02 K/mcL (0.00-0.70); Eosinophils % (Auto) 0.1 % (0.0-7.0); Hematocrit 39.2 % (40.1-51.0); Lymphocytes # (Auto) 1.49 K/mcL (1.50-4.80); Lymphocytes % (Auto) 9.7 % (15.5-49.0); Mean Cell Volume 86.2 fL (80.0-100.0); Mean Corpuscular HGB Conc 33.2 g/dL (31.0-36.0); Mean Platelet Volume 9.7 fL (8.8-12.5); Monocytes % (Auto) 7.1 % (1.0-12.0); Neutrophils % (Auto) 81.5 % (38.0-78.0); Platelet Count 422 K/mcL (140-440); RBC 4.55 M/mcL (4.63-6.08); Red Cell Distribution Width 14.4 % (11.5-14.5); WBC 15.4 K/mcL (4.5-11.0)
[2023-01-11 08:09] LABS: ALT/SGPT 48 U/L (<40); AST/SGOT 56 U/L (<40); Albumin 2.6 gm/dL (3.2-5.2); Albumin/Globulin Ratio 0.7 (1.0-2.3); Alkaline Phosphatase 172 U/L (39-117); Bilirubin,Direct 0.3 mg/dL (<0.3); Bilirubin,Total 0.5 mg/dL (0.1-1.0); Blood Urea Nitrogen 13 mg/dL (8-23); Calcium 8.1 mg/dL (8.6-10.4); Carbon Dioxide 23 mmol/L (22-30); Chloride 98 mmol/L (96-108); Globulin 3.9 gm/dL (2.2-3.7); Glomerular Filtration Rate 51; Glucose 108 mg/dL (70-105); Lactate Dehydrogenase 211 U/L (135-225); Phosphorous 2.1 mg/dL (2.5-4.5); Triglycerides 184 mg/dL (<150); Uric Acid 4.5 mg/dL (2.5-8.0)
--- NOTE | 2023-01-11 08:09 | Internal Med Progress Note ---
SUBJECTIVE Subjective Patient information: Note initiated : 01/11/23 at 8:06 am Service Date, if different from initiated Date: [] Patient: Clay Villagran a 67 y/o M admitted on 01/08/23 for Urological. Chief Complaint: [] Interval history: History of present illness: Mr. Villagran is a 67 year old M presents to ED sent in by Urologist because of shaking that confusion abdominal pain. He was seen urology for prostate enlargement. He has seen urology in the past for urinary retention. He had a Rodrigues in the past couple months ago for a while which was then removed. Patient also reports urine is darker lately. In the ED he is noted to have developed a fever and had noticeable rigors. He had significant urinary retention bladder scan for over thousand and when a Rodrigues catheter was placed and he drained 1700 cc. He was febrile at 101.6 and had a white blood cell of 19,000. He had acute kidney injury as well as hyponatremia and hypokalemia. Patient says he had an episode of nausea vomiting last night. His pain is right lower quadrant described as achy. Complains of fevers and chills and shaking. He also tachycardic in the ED 123 and tachypneic. Patient started on IV antibiotics and IV fluids in the ED. Patient is on Flomax and states he has been taking it regularly. Does not know the dose. 3/ Patient states poor sleep last night. Complains of fevers and chills. Leukocytosis worsened. Anemia. Hyponatremia, acidosis creatinine 1.7. Low phosphorus. Transaminitis. 01/10 Patient feeling still quite weak. Leukocytosis still quite elevated but mildly improved from yesterday. He had fevers overnight up to 102.9. Hyponatremia noted although little better than previous day. Hypokalemia noted. Acidosis me tabolic. Renal function slowly improving. Urine culture with gram-negative bacillus. 01/11 Patient said he has some chills overnight. Patient did have a mild fever yesterday evening. Urine culture with Klebsiella pneumonia. Leukocytosis slowly improving. Hyponatremia noted. Renal function stable. Mild hypophosphatemia. Transaminitis mild and noted. Patient still quite weak. Review of Systems: denies headache/nausea/vomiting/chest or abdominal pain/cough/dyspnea/diarrhea. Otherwise see above. PHYSICAL EXAM General: Alert, Awake, No acute Distress, obese Eyes/N/T: EOMI, no scleral icterus, Head/Neck: neck supple, full ROM, CV: RRR, No murmurs, Pulm: Clear b/l, no wheezing/rhonchi/rales, no respiratory distress Abd: soft, nontender, +BS x4 Ext: no clubbing/cyanosis/edema, nontender Neuro: Alert, no focal deficits, moves all extremities, sensations intact b/l upper/lower Psychiatric: Skin: warm/dry, normal color Constitutional Vitals: Vital Signs Temp Pulse Resp BP Pulse Ox O2 Del Method 99.7 F H 96 H 20 126/87 96 Room Air 01/11/23 03:45 01/11/23 03:45 01/11/23 03:45 01/11/23 03:45 01/11/23 03:45 01/11/23 03:45 Period Temp Pulse Resp BP Sys/Mohan Pulse Ox O2 Del Method O2 Flow Rate Last 24 Hr 98.8 F-101.1 F 82-98 16-20 103-157/72-98 96-100 Room Air-Room Air Intake and Output 01/10/23 01/11/23 01/11/23 19:59 03:59 11:59 Intake Total 1190 800 Output Total 825 2300 Balance 365 -1500 Weight 97.885 kg Intake & Output: Intake & Output 01/10/23 01/11/23 01/11/23 19:59 03:59 11:59 Intake Total 1190 800 Output Total 825 2300 Balance 365 -1500 Weight 97.885 kg Intake: Oral 830 800 Tube Feeding 360 Output: Urine Catheter Amount 825 2300 Other: Meal Dinner Percent of Meal Consumed 100% Feeding Ability Independent Urine Appearance Clear Clear Urethral Clear Urine Color Dark Yellow Bright Yellow Urethral Dark Yellow OBJ DATA Labs 01/11/23 05:46 01/10/23 05:21 Labs: Abnormal Lab Results 01/11/23 01/10/23 01/10/23 05:46 05:21 05:21 WBC 15.4 H 17.6 H RBC 4.55 L 3.88 L Hgb 13.0 L 11.3 L Hct 39.2 L 33.0 L Immature Gran % (Auto) 1.4 H 1.5 H Neut % (Auto) 81.5 H 84.1 H Lymph % (Auto) 9.7 L 6.1 L Lymph # (Auto) 1.49 L 1.07 L [place] # (Auto) 1.10 H 1.41 H Immature Gran # 0.21 H 0.27 H Absolute Neutrophils 12.57 H 14.78 H POC VBG pH POC VBG pCO2 at Temp POC VBG pO2 POC VBG HCO3 POC VBG Total CO2 POC Venous O2 Sat POC VBG Base Excess POC Sodium Sodium 132 L POC Potassium Potassium 3.1 L Carbon Dioxide 20 L POC BUN BUN Creatinine 1.4 H POC Creatinine Glucose 113 H POC Glucose Calcium 8.5 L POC WB Ioniz Calcium Phosphorus Direct Bilirubin 0.5 H AST ALT Alkaline Phosphatase 189 H Lactate Dehydrogenase 235 H Total Protein 5.8 L Albumin 2.5 L Albumin/Globulin Ratio 0.8 L Urine Appearance Urine Protein Ur Leukocyte Esterase Urine RBC Urine WBC Urine Bacteria Urine Mucus 01/09/23 01/09/23 01/08/23 05:18 05:18 17:46 WBC 20.7 H RBC 4.03 L Hgb 11.6 L Hct 33.8 L Immature Gran % (Auto) 1.0 H Neut % (Auto) 87.7 H Lymph % (Auto) 3.1 L Lymph # (Auto) 0.64 L [place] # (Auto) 1.67 H Immature Gran # 0.21 H Absolute Neutrophils 18.18 H POC VBG pH 7.51 H POC VBG pCO2 at Temp 23.0 L POC VBG pO2 57 H POC VBG HCO3 18.3 L POC VBG Total CO2 19.0 L POC Venous O2 Sat 93.0 H POC VBG Base Excess -5.0 L POC Sodium Sodium 128 L POC Potassium Potassium Carbon Dioxide 18 L POC BUN BUN 24 H Creatinine 1.7 H POC Creatinine Glucose 111 H POC Glucose Calcium 7.5 L POC WB Ioniz Calcium Phosphorus 2.2 L Direct Bilirubin 0.6 H AST 42 H ALT 44 H Alkaline Phosphatase 132 H Lactate Dehydrogenase Total Protein Albumin 2.5 L Albumin/Globulin Ratio 0.7 L Urine Appearance Urine Protein Ur Leukocyte Esterase Urine RBC Urine WBC Urine Bacteria Urine Mucus 01/08/23 01/08/23 01/08/23 15:28 15:20 15:15 WBC 18.8 H RBC Hgb Hct 39.9 L Immature Gran % (Auto) 0.8 H Neut % (Auto) 87.9 H Lymph % (Auto) 2.6 L Lymph # (Auto) 0.48 L [place] # (Auto) 1.59 H Immature Gran # 0.15 H Absolute Neutrophils 16.52 H POC VBG pH POC VBG pCO2 at Temp POC VBG pO2 POC VBG HCO3 POC VBG Total CO2 POC Venous O2 Sat POC VBG Base Excess POC Sodium 131 L Sodium POC Potassium 3.1 L Potassium Carbon Dioxide POC BUN 29 H BUN Creatinine POC Creatinine 2.5 H Glucose POC Glucose 145 H Calcium POC WB Ioniz Calcium 1.05 L Phosphorus Direct Bilirubin AST ALT Alkaline Phosphatase Lactate Dehydrogenase Total Protein Albumin Albumin/Globulin Ratio Urine Appearance Turbid A Urine Protein 100 A Ur Leukocyte Esterase 500 A Urine RBC 18 H Urine WBC > 182 H Urine Bacteria Many A Urine Mucus Few A Meds: Medications Acetaminophen (Acetaminophen 325 Mg Tablet) 650 mg PO Q6HP PRN; Protocol PRN Reason: Per Pain Protocol/Fever > 101 Last Admin: 01/10/23 17:14 Dose: 650 mg Hydrocodone Bitart/Acetaminophen (Hydrocodone/Apap 5/325mg Tablet) 1 tab PO Q4HP PRN PRN Reason: PAIN LEVEL 3-6 Albuterol/Ipratropium (Ipratropium/Albuterol 3 Ml Ampul.Neb) 3 ml NEB Q4HP PRN PRN Reason: Shortness Of Breath Docusate Sodium (Docusate Sodium 100 Mg Capsule) 100 mg PO BID [facility] Last Admin: 01/10/23 20:27 Dose: Not Given Enoxaparin Sodium (Enoxaparin 40 Mg/0.4 Ml Syringe) 40 mg SQ DAILY [facility] Last Admin: 01/10/23 08:35 Dose: 40 mg Potassium Chloride 40 meq/ (Dextrose) 520 mls @ 130 mls/hr IV UD PRN PRN Reason: Potassium < 3 Magnesium Sulfate (Magnesium Sulfate) 2 gm in 50 mls @ 50 mls/hr IV UD PRN PRN Reason: Magnesium </= 1.6 Ceftriaxone Sodium 2 gm/ (Dextrose) 50 mls @ 100 mls/hr IV Q24H [facility] Last Infusion: 01/10/23 10:25 Dose: Infused Ondansetron HCl (Ondansetron 4 Mg/2 Ml Vial) 4 mg IV Q4HP PRN PRN Reason: Nausea And Vomiting Last Admin: 01/09/23 12:35 Dose: 4 mg Polyethylene Glycol (Polyethylene Glycol 3350 17 Gm Packet) 17 gm PO DAILYP PRN PRN Reason: Constipation Potassium Chloride (Potassium Chloride 20 Meq Tablet) 40 meq PO UD PRN PRN Reason: Potssium is 3-3.5 Potassium Chloride (Potassium Chloride 20 Meq Tablet) 40 meq PO UD PRN PRN Reason: Potassium < 3 Senna (Sennosides 1 Tablet) 2 tab PO DAILYP PRN PRN Reason: Constipation Sodium Chloride (0.9 % Sodium Chloride 10 Ml Syringe) 10 ml IV Q8 [facility] Last Admin: 01/10/23 20:27 Dose: 10 ml Tamsulosin HCl (Tamsulosin 0.4 Mg Capsule) 0.8 mg PO HS [facility] Last Admin: 01/10/23 20:27 Dose: 0.8 mg A/P Narrative A/P Narrative: A: *UTI (Klebsiella pna) complicated: *Sepsis(tachycardia/tachypnea/fever/leukocytosis): 2/2 above -Leukocytosis slowly improving -tmax 101.1 yesterday *UR from [facility]: 2/2 BPH -post-obstructive diuresis *BPH: has seen urology in past *SIRISHA on CKD II: 2/2 above, improving *Anemia: *Hyponatremia/hypokalemia/hypophosphatemia: improving *Metabolic acidosis: *Transaminitis w/fatty liver: *Obesity: bmi 31, Lifestyle modifications P: -Rocephin, pending BC/UC -IVF's hold -monitor UOP, renal fxn -Rodrigues in place, keep in until seen by urology -flomax -Follow-up electrolytes trend and replace as needed -Avoid nephrotoxic meds -PT/OT -CM for placement needs -f/u with urology outpt -ppx: lovenox Time Spent With Patient Time: Total time spent is greater than 50% in coordination of care (as documented) at patient's floor/unit and/or counseling patient: Subsequent: Total time with patient: 35 - 49 minutes QUALITY Stroke Symptom Onset Unknown: No VTE Deep Vein Thrombosis/Pulmonary Embolism Present on Admission: No
[2023-01-11] MEDS: 0.9 % SODIUM CHLORIDE 10 ML SYRINGE IV SCH ×3 (08:30→20:53)
[2023-01-11] MEDS: ENOXAPARIN 40 MG/0.4 ML SYRINGE SQ SCH (09:18)
[2023-01-11] MEDS: DOCUSATE SODIUM 100 MG CAPSULE PO SCH ×2 (09:21→20:53)
[2023-01-11] MEDS: cefTRIAXone 2 GM in DEXTROSE 5% IN WATER 50 ML IV SCH (09:22)
[2023-01-11] MEDS: PHOSPHORUS 250 MG TABLET PO SCH ×4 (09:22→20:53)
[2023-01-11] MEDS: ACETAMINOPHEN 325 MG TABLET PO PRN ×2 (12:37→20:52)
[2023-01-11] MEDS ORDERED: TAMSULOSIN 0.4 MG CAPSULE PO SCH (21:00)
[2023-01-12] MEDS: ACETAMINOPHEN 325 MG TABLET PO PRN (03:48)
[2023-01-12] MEDS: 0.9 % SODIUM CHLORIDE 10 ML SYRINGE IV SCH (06:38)
[2023-01-12 06:43] LABS: Basophils # (Auto) 0.02 K/mcL (0.00-0.30); Basophils % (Auto) 0.1 % (0.0-2.0); Eosinophils # (Auto) 0.04 K/mcL (0.00-0.70); Eosinophils % (Auto) 0.3 % (0.0-7.0); Hematocrit 37.1 % (40.1-51.0); Hemoglobin 12.6 g/dL (13.7-17.5); Lymphocytes # (Auto) 1.52 K/mcL (1.50-4.80); Lymphocytes % (Auto) 11.1 % (15.5-49.0); Mean Cell Volume 85.1 fL (80.0-100.0); Mean Platelet Volume 9.2 fL (8.8-12.5); Monocytes # (Auto) 1.04 K/mcL (0.10-0.90); Monocytes % (Auto) 7.6 % (1.0-12.0); Neutrophils % (Auto) 79.6 % (38.0-78.0); Platelet Count 484 K/mcL (140-440); RBC 4.36 M/mcL (4.63-6.08); Red Cell Distribution Width 14.2 % (11.5-14.5); WBC 13.7 K/mcL (4.5-11.0)
[2023-01-12 07:29] LABS: ALT/SGPT 66 U/L (<40); AST/SGOT 72 U/L (<40); Albumin 2.6 gm/dL (3.2-5.2); Albumin/Globulin Ratio 0.6 (1.0-2.3); Alkaline Phosphatase 206 U/L (39-117); Bilirubin,Direct 0.2 mg/dL (<0.3); Bilirubin,Total 0.5 mg/dL (0.1-1.0); Blood Urea Nitrogen 13 mg/dL (8-23); Calcium 7.8 mg/dL (8.6-10.4); Carbon Dioxide 21 mmol/L (22-30); Chloride 98 mmol/L (96-108); Glomerular Filtration Rate 55; Glucose 113 mg/dL (70-105); Lactate Dehydrogenase 221 U/L (135-225); Phosphorous 2.8 mg/dL (2.5-4.5); Triglycerides 194 mg/dL (<150); Uric Acid 4.6 mg/dL (2.5-8.0)
[2023-01-12] MEDS: cefTRIAXone 2 GM in DEXTROSE 5% IN WATER 50 ML IV SCH (08:13)
[2023-01-12] MEDS: DOCUSATE SODIUM 100 MG CAPSULE PO SCH (08:14)
[2023-01-12] MEDS: ENOXAPARIN 40 MG/0.4 ML SYRINGE SQ SCH (08:14)
--- NOTE | 2023-01-12 11:30 | Discharge Summary ---
Discharge Provider Provider IMPORTANT FOLLOW-UP INFORMATION FOR PCP: Patient information: Note initiated : 01/12/23 at 11:30 am Service Date, if different from initiated Date: [] Patient: Clay Villagran 67 y/o M admitted on 01/08/23 for Urological. Chief Complaint: [] Date of admission: 01/08/23 22:07 Discharge date: 01/12/23 Primary care physician: Joel Medina Consults: 01/08/23 Consult to Physician [CONS] Stat Comment: Consulting Provider: Eder Lion Reason For Exam: Physician to Consult COURSE Hospital Course Hospital course: Mr. Villagran is a 67 year old M presents to ED sent in by Urologist because of shaking that confusion abdominal pain. He was seen urology for prostate enlargement. He has seen urology in the past for urinary retention. He had a Rodrigues in the past couple months ago for a while which was then removed. Patient also reports urine is darker lately. In the ED he is noted to have developed a fever and had noticeable rigors. He had significant urinary retention bladder scan for over thousand and when a Rodrigues catheter was placed and he drained 1700 cc. He was febrile at 101.6 and had a white blood cell of 19,000. He had acute kidney injury as well as hyponatremia and hypokalemia. Patient says he had an episode of nausea vomiting last night. His pain is right lower quadrant described as achy. Complains of fevers and chills and shaking. He also tachycardic in the ED 123 and tachypneic. Patient started on IV antibiotics and IV fluids in the ED. Patient is on Flomax and states he has been taking it regularly. Does not know the dose. 3/4 Patient states poor sleep last night. Complains of fevers and chills. Leukocytosis worsened. Anemia. Hyponatremia, acidosis creatinine 1.7. Low phosphorus. Transaminitis. 3/ Patient feeling still quite weak. Leukocytosis still quite elevated but mildly improved from yesterday. He had fevers overnight up to 102.9. Hyponatremia noted although little better than previous day. Hypokalemia noted. Acidosis metabolic. Renal function slowly improving. Urine culture with gram-negative bacillus. 01/11 Patient said he has some chills overnight. Patient did have a mild fever yesterday evening. Urine culture with Klebsiella pneumonia. Leukocytosis slowly improving. Hyponatremia noted. Renal function stable. Mild hypophosphatemia. Transaminitis mild and noted. Patient still quite weak. 01/12 The patient did have a high-grade temperature of 100.2 but no fevers and vitals otherwise normal. Leukocytosis improving, renal function improving. Physical therapy recommending discharge to home with home health. The patient will be discharged to home on ciprofloxacin 500 mg twice daily for 5 more days. He will be discharged with a Rodrigues catheter as well as Flomax and follow-up with urology in clinic after discharge. Patient will also follow-up with his primary care provider after hospital discharge. I recommend repeating CBC with differential, renal function panel and liver function test at follow-up. Physical exam Head: Atraumatic, normal inspection. Eyes: normal appearance, no scleral icterus. Neck: full ROM Respiratory: no respiratory distress. Cardiovascular: normal rate and rhythm, S1, S2. GI/Abdominal: soft, nontender, no guarding. : Indwelling Rodrigues catheter. Extremities: full range of motion, nontender. Neurological: CN II-XII intact, intact motor, intact sensation. Psychiatric: normal mood. Skin: warm, normal color Discharge diagnosis: Complicated urinary tract infection Time Spent with Patient Time attestation: Total time spent providing and/or coordinating discharge services: Time spent: Greater than 30 minutes EXAM Constitutional Vitals: Temp Pulse Resp BP Pulse Ox O2 Del Method O2 Flow Rate 98.8 F 79 18 107/77 93 Room Air 0 01/12/23 08:00 01/12/23 08:00 01/12/23 08:00 01/12/23 08:00 01/12/23 08:00 01/12/23 08:00 01/11/23 20:00 Discharge Data Data Completed and Pending Labs on day of discharge: Labs from last 24 hours 01/12/23 01/12/23 05:22 05:22 WBC 13.7 H RBC 4.36 L Hgb 12.6 L Hct 37.1 L MCV 85.1 MCH 28.9 MCHC 34.0 RDW 14.2 Plt Count 484 H MPV 9.2 Immature Gran % (Auto) 1.3 H Neut % (Auto) 79.6 H Lymph % (Auto) 11.1 L [place] % (Auto) 7.6 Eos % (Auto) 0.3 Baso % (Auto) 0.1 Lymph # (Auto) 1.52 [place] # (Auto) 1.04 H Eos # (Auto) 0.04 Baso # (Auto) 0.02 Immature Gran # 0.18 H Absolute Neutrophils 10.89 H Sodium 132 L Potassium 3.3 Chloride 98 Carbon Dioxide 21 L Anion Gap 13.0 BUN 13 Creatinine 1.3 H GFR Calculation 55 Glucose 113 H Uric Acid 4.6 Calcium 7.8 L Phosphorus 2.8 Magnesium 1.9 Total Bilirubin 0.5 Direct Bilirubin 0.2 GGT 87 H AST 72 H ALT 66 H Alkaline Phosphatase 206 H Lactate Dehydrogenase 221 Total Protein 6.6 Albumin 2.6 L Globulin 4.0 H Albumin/Globulin Ratio 0.6 L Triglycerides 194 H Preliminary micro results at discharge 01/10/23 20:18 Blood Culture - Preliminary Blood 01/10/23 20:10 Blood Culture - Preliminary Blood 01/08/23 16:45 Blood Culture - Preliminary Blood 01/08/23 16:40 Blood Culture - Preliminary Blood Discharge Plan Patient/Caregiver Discharge Instructions Activity: increase activity as tolerated Diet: Regular Diet Activity Restrictions/Additional Instructions: Referral to see urology and 3 to 7 days for bladder outlet obstruction and history of BPH Prescriptions: New tamsulosin [Flomax] 0.4 mg capsule 0.4 mg PO QHS Qty: 30 0RF tamsulosin 0.4 mg Capsule 0.4 mg PO HS Qty: 60 2RF ciprofloxacin HCl [Cipro] 500 mg tablet 500 mg PO BID 5 Days Qty: 10 0RF Continued acetaminophen [Tylenol Extra Strength] 500 mg tablet 1,000 mg PO QID PRN (Reason: Back Pain) Follow Up Plan Follow up with: Moshe Beach MD [Physician] - Joel Medina MD [Primary Care Provider] - Patient Disposition: Home Health Service Prognosis: Fair Rehab Potential: Fair I certify that the patient requires SNF services: Yes Overall status at discharge: patient is progressing back to baseline Discharge Orders: Discharge Order (Routine); Ordered 01/12/23 Ordered By: Levar Montanez QUALITY VTE Deep Vein Thrombosis/Pulmonary Embolism Present on Admission: No
== END 2023-01-12 13:25 | disposition home health service (06) | DRG 872 ==
LOC: ED 14:30 → MEDSUR 22:07
PROVIDERS: ADMIT Internal Medicine; ATTEND Internal Medicine